=== PATIENT | female | born 1955 | race Caucasian/White ===

== ENCOUNTER 2017-03-21 03:51 | Emergency (ER) | payer MEDICAID, MEDICARE ==
[2017-03-21] MEDS ORDERED: Aspirin Low Dose CHEW TAB* 81 MG PO ONE (04:16)
[2017-03-21 05:34] LABS: ABS Basophils 0 10^3/ul (0-0.2); ABS Eosinophils 0.2 10^3/ul (0-0.6); ABS Lymphocytes 2.8 10^3/ul (1.0-4.8); ABS Monocytes 0.7 10^3/ul (0-0.8); ABS Neutrophils 4.7 10^3/ul (1.5-7.7); ABS Nucleated RBC 0.01 10^3/ul; Eosinophil % 2.3 % (0-6); Hematocrit 41 % (35-47); Hemoglobin 13.9 g/dl (12.0-16.0); Lymphocyte % 32.8 % (25-47); Mean Corpuscular HGB Conc 34 g/dl (31-36); Mean Corpuscular Hemoglobin 30 pg (27-31); Mean Corpuscular Volume 87 fL (80-97); Mean Platelet Volume 8 um3 (7.4-10.4); Nucleated Red Blood Cells % 0.1; Platelet Count 327 10^3/ul (150-450); Red Blood Count 4.72 10^6/ul (4.0-5.4); Red Cell Distribution Width 15 % (10.5-15); White Blood Count 8.4 10^3/ul (3.5-10.8)
[2017-03-21 05:44] LABS: INR 0.91 (0.77-1.02)
--- OUTSIDE RECORDS SUMMARY | 2017-03-21 05:44 | XMS REPORT ---
:1955 External Reference #:[id number] Author Organization [facility] Address [address] [place] [address] Phone [phone] Care Team Providers Name Role Phone HarshilSal BARDALES Primary Care Physician Unavailable Payers Type Date Identification Numbers Payment Provider Subscriber Medicare Primary Effective: Policy Number: Medicare - Bswny Sheri Boothe 2016 [id number] PayID: [id number] [address] [place] [address] Medigap Part B Policy Number: [id number] Medicaid After Private Sheri Boothe Group Name: 1 2 Type ins co. code [address] PayID: [id number] [place] [address] Medigap Part B Effective: Policy Number: Tressa Boothe 2012 [id number] Expires: 2016 Group Name: [place] [address] [address] PayID: [id number] JEREMY Momin [id number] Medigap Part B Effective: Policy Number: Tressa Boothe 2001 [id number] Expires: 2010 Group Number: [id number] [address] Group Name: BC/[place] of [place] Dhillon [address] PayID: [id number] Medigap Part B Effective: Policy Number: Tressa Boothe 2010 [id number] Expires: 2012 Group Name: Enhanced [address] [address] PayID: [id number] JEREMY Momin [id number] Workers Compensation Onset: 2002 Policy Number: [employer] Sheri Pahm [id number] Shyann PayID: [id number] [address] [place] [address] Advance Directives Type Date Description Status Comment Other Directive 12/30/2009 Health Care Proxy Current and Verified Problems Date Description Provider Status Onset: 08/26/2010 Hypothyroidism Natali Melo M.D. Active Family History Date Family Member(s) Problem(s) Comments Father Diabetes : (age 69 Father due to CHF Years) Father Obesity Father CHF Father Hypertension Mother Goiter Mother Diabetes Mother Hypertension Mother SC first early 70's..... age 86 with CAD Mother CHF Mother COPD First Brother Prostate Disease Paternal Grandmother Diabetes Paternal Grandmother CAD Social History Type Date Description Comments Lives With Alone Diet Healthy, Well Balanced tries to get vegetrables, has a smoothie most mornings Pets 2 cats Pets 1 dog Occupation Disabled worked for the [employer] prior to disability due to cardiomyopathy.....she is busy helping her aunts and keeping up the house Cigarette Use Former Cigarette Smoker 1/2 Pack Daily Cigarette Use Quit - Age 48 ETOH Use Denies alcohol use Smoking Patient is a former smoker Recreational Drug Use Denies Drug Use Daily Caffeine Consumes on average 1 cup of DECAFF tea per day Enjoy Exercising Does not enjoy exercising General Hx Text Adopted one child out in teens, has another child named Vickie Del Rio, age 28. Allergies, Adverse Reactions, Alerts Date Description Reaction Status Severity Comments 07/27/2006 Penicillin active 07/27/2006 Penicillin active Medications Medication Date Status Form Strength Qnty SIG Indications Ordering Provider Doxycycline 03/11 Active Tablets 100mg 20tab 1 tab by J01.90 Aidan Hyclate s mouth twice [place] a day. MD Irma not fill until patient calls. 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[employer] Naproxen Sodium 12/23 Active Tablets 550mg 60tab 1 by mouth M54.2 nt s twice a day Sheryl Chua, with food [employer]ICIAN[employer] if needed for pain Magnesium 07/11 Active Tablets 250mg 90tab 1 by mouth 729.82 nt s every night Sheyrl Chua, at bedtime [employer] TECH[employer]ICIAN[employer] for leg cramps Trazodone HCL 07/11 Active Tablets 100mg 30tab take one G47.00 wnt s tablet by Sheryl Chua mouth at [facility] bedtime for insomnia Montelukast 09/25 Active Tablets 10mg 90tab take 1 Aidan Sodium s tablet by Lei santoro once , daily Levothyroxine 01/19 Active Tablets 112mcg 90tab take 1 Shawnti Sodium s tablet once Sheryl Chua, daily [facility] Calcium-Vitamin 04/17 Active Tablets 500-125 1 po bid Estrellita Ryan Chun., often R.D. forgets Lisinopril Active Tablets 2.5mg 30tab 1 po qd Brand, /0000 s MD Naveed Metoprolol Active Tablets ER 25mg 30tab 1 po qd Brand, Succinate ER /0000 24HR s MD Naveed Furosemide Active Tablets 20mg 30tab 1 po daily Brand, /0000 s if needed MD Naveed Clarithromycin 05/16 Hx Tablets 500mg 20tab 1 by mouth J01.90 s twice a day Sheryl Chua, - for [facility] 09/15 sinusitis Bactrim DS 02/12 Hx Tablets 800-160mg 10tab take 1 Aidan s tablet by Lei booth MD 05/16 12 hours /2016 for 5 days Wellbutrin XL 12/23 Hx Tablets ER 150mg 30tab Take One F33.1 24HR s Tablet By Sheryl Chua - Mouth Every [facility] 12/01 Morning Clindamycin HCL 12/06 Hx Capsules 300mg 21cap take 1 Man01.90 Aidan s capsule by Lei - mouth MD leobardo 12/23 8 hours 7 days Sudafed 10/30 Hx Tablets 30mg 30tab 1 tab by Man01Juan Aidan s mouth three [place] - times a day MD 12/23 pressure Azithromycin 10/30 Hx Tablets 250mg 6tabs take 2 J01.90 Aidan tablets by Heettoribioks - mouth one MD 12/23 time take one daily for 4 days. Do not fill until patient calls. Zantac 150 05 Hx Tablets 150mg 30tab 1 po QHS R07.9 [facility] s Sheryl Chua, - [facility]- 05/16 Alprazolam 06/25 Hx Tablets 0.25mg 30tab 1 by mouth R07.9 s before bed Sheryl Chua, - [facility]- 05/16 Nasonex 06/03 Hx Suspension 50mcg/Act 17uni 2 sprays ts each Sheryl Chua, - nostril [facility]- 05/15 daily rhinitis Tizanidine HCL 07/15 Hx Tablets 2mg 30tab take 1 s tablet by Sheryl Chua, - mouth [facility]- 12/28 Before If Needed For Muscle Cramps Ceftin 03/21 Hx Tablets 500mg 20tab 1 by mouth s twice a day Sheryl Chua, - for 10 days [facility] 03/21 Cefuroxime 03/21 Hx Tablets 500mg 20tab 1 by mouth Axetil s twice a day Sheryl Chua, - for [facility] 03/31 infection Pool Membership 01/03 Hx swimming for Sheryl Chua, - exercise at [facility] 12/23 least twice weekly for cardiomyopa thy, cuboid syndrome and chronic neck and back pain Trazodone HCL 06/20 Hx Tablets 50mg 30tab 1 po QHS 780.52 s Sheryl Chua, - [facility] 07/11 Lidoderm 01/06 Hx Patches 5% 30uni apply one 726.19 ts patch to Sheryl Chua, - daily daily [facility]- 12/28 if needed for pain, remove after 12 hours Mirtazapine 08/30 Hx Tablets 15mg 30tab take 1 780.52 s tablet by Sheryl Chua, - mouth at [facility] 06/20 bedtime Needed For Sleep Cephalexin 03/17 Hx Tablets 500mg 20tab take 1 599.0 s tablet po Therese, - bid x 10 [employer] TECHNICIAN[employer] SMZ-TMP DS 03/12 Hx Tablets 800-160mg 6tabs one po bid 599.0 for 3 days K.W. - for UTI Kameron, 03/17 M.D. Azithromycin 01/25 Hx Tablets 250mg 6tabs take 2 461.8 tablets Therese, - today then [employer] TECH[employer]ICIAN[employer] 02/11 1 tablet daily for the next 4 days Trazodone HCL 11/10 Hx Tablets 50mg 60tab take one to 780.52 s two tablets K.W. - by mouth at [place], 08/30 bedtime as .D. needed for insomnia Fluticasone 01/12 Hx Suspension 50mcg/Act 16uni Use as Shawnti Propionate ts Directed Sheryl Chua, - [employer] TECH[employer]IAN[employer] 06/03 Pulmicort 09/24 Hx Aerosol 180mcg/Ac 1mont 1 inhlation 518.89 Shawnti Flexhaler t h bid for Sheryl Chua, - breathing [employer]CH[employer]ICIAN[employer] 11/10 No Work 12/13 Hx excuse due 465.9 to illness, Sheryl Chua, - may return [employer] TECHNICIAN[employer] 08/26 when fever /2010 free and feeling better Betamethasone 12/03 Hx Cream 0.1% 15g apply to 782.9 Natali Valerate efrain K.W. - areas of [place], 01/25 skin bid- M.D. avoid eyes Naprosyn Ec 05/01 Hx Tablets 500mg 60tab 1 po bid 719.44 s with food Sheryl Chua, - for pain, [employer]IAN[employer] 07/02 stop taking if stomach pain develops Metrogel-Vaginal 10/11 Hx Gel 0.75% 70g one applicator Lay, - full bid M.D., 07/02 for 5 days R.D. Robitussin ac 04/21 Hx 150ml 1-2 tsp po 486 nt q4-6hr prn Sheryl Chua, - cough/pain [employer] TE[employer]ICIAN[employer] 12/03 Zithromax Z-Nadir 04/18 Hx Tablets 250mg 6tabs two by Estrellita /2008 mouth every Lay, - day today M.DNissa, 03/21 and then R.D. /2013 one by mouth every day for 4 days Multi-Vitamin/Mi 04/17 Hx Tablets 1 po qd Estrellita ner Lay - Vero.Kierra, 12/28 R.D. /2014 Zithromax Z-Nadir 03/31 Hx Tablets 250mg 6tabs 2 po on day 465.9 wnt 1, 1 po on R. Storm, - days 2-5 [employer] TECHNICIAN[employer] 04/17 Flonase 01/24 Hx Suspension 50mcg/Act 16G Ud For Allergic K.W. - Rhinitis Kameron, 01/12 M.D. Synthroid 01/24 Hx Tablets 112mcg 90tab Take 1 s Tablet Once K.W. - Daily Kameron, 01/19 (Recheck M.D. Thyroid Levels Once A Year) Levothyroxine 11/30 Hx Tabs 112mcg 30tab take 1 s tablet once K.W. - daily Kameron, 01/24 (Recheck .D. Thyroid Levels In 1 To 2 Months) Synthroid 03/08 Hx Tablets 100mcg 30tab one po qd s and recheck K.W. - TSH in 6 Kameron, 01/23 months. .D. Synthroid 08/05 Hx Tablets 112mcg 30tab one po qd, s recheck K.W. - thyroid Kameron, 03/08 levels in .D. 1-2 months Synthroid 07/27 Hx Tablets 125mcg 0tabs 1 po qd Harrison.WNissa - Kameron, 08/05.D. Flector Hx Patches 1.3% [place], /0000 Lee Gauthier MD 11/10 Chlorhexidine Hx Solution 0.12% Unknown Gluconate / - 11/10 Etodolac Hx Tablets 400mg Unknown / - 11/10 Singulair 00/00 Hx Tablets 10mg 90tab one po qd Shawnti /0000 dileep Chua - CONTRACT TECHNICIAN-Rajesh 09/25 Chlorhexidine Hx Solution 0.12% Unknown Gluconate /0000 - 11/10 Eszopiclone Hx Tablets 1mg take 1 Unknown /0000 tablet - every 06/25 Immunizations CPT Code Status Date Vaccine Lot # [id number] Given 12/01/2016 Influenza Virus Vaccine, Quadrivalent, 3 Yr > [id number] Quad, Preserv Free 04090 Given 12/24/2015 Pneumovax 23 (PPSV23) 65+ years or high risk 2 to [id number] 64 year old 46252 Given 12/07/2015 Influenza Virus Vaccine, Quadrivalent, 3 Yr > [id number] Quad, Preserv Free 65161 Given 03/20/2015 Influenza Virus Vaccine, Quadrivalent, 3 Yr > [id number] Quad, Preserv Free 35846 Given 01/03/2014 Influenza Virus Vaccine, Quadrivalent, 3 Yr > [id number] Quad, Preserv Free 54982 Given 02/16/2013 Influenza Vaccine-Preservative Free 3 Yrs And [id number] Above 48281 Given 12/03/2009 Tdap (Adacel) [id number] 11985 Given 12/03/2009 Influenza Vaccine-Preservative Free 3 Yrs And [id number] Vital Signs Date Vital Result Comment 03/11/2017 Weight 218.00 lb Weight in kg's 98.885 BP Systolic 105 mmHg BP Diastolic 80 mmHg Heart Rate 76 /min Body Temperature 99.1 F O2 % BldC Oximetry 95 % 12/01/2016 Weight 220.00 lb Weight in kg's 99.792 BP Systolic 110 mmHg BP Diastolic 80 mmHg Heart Rate 68 /min Body Temperature 97.8 F 09/15/2016 Weight 217.00 lb Weight in kg's 98.431 BP Systolic 104 mmHg BP Diastolic 68 mmHg Heart Rate 75 /min Respiratory Rate 16 /min Height 64 inches 5'4" BMI (Body Mass Index) 37.2 kg/m2 O2 % BldC Oximetry 98 % 05/16/2016 Weight 214.00 lb Weight in kg's 97.070 BP Systolic 100 mmHg BP Diastolic 66 mmHg Heart Rate 70 /min Body Temperature 97.1 F Respiratory Rate 16 /min O2 % BldC Oximetry 97 % 01/28/2016 Weight 214.00 lb Weight in kg's 97.070 BP Systolic 100 mmHg BP Diastolic 60 mmHg Heart Rate 68 /min Body Temperature 97.6 F Respiratory Rate 12 /min Height 63 inches 5'3" BMI (Body Mass Index) 37.9 kg/m2 12/24/2015 Weight 206.00 lb Weight in kg's 93.442 BP Systolic 110 mmHg BP Diastolic 80 mmHg Heart Rate 80 /min O2 % BldC Oximetry 96 % 12/07/2015 Weight 211.00 lb Weight in kg's 95.710 BP Systolic 100 mmHg BP Diastolic 60 mmHg Heart Rate 60 /min Body Temperature 99.3 F O2 % BldC Oximetry 98 % 10/31/2015 Weight 214.00 lb Weight in kg's 97.070 BP Systolic 90 mmHg BP Diastolic 62 mmHg Heart Rate 73 /min Body Temperature 96.7 F Respiratory Rate 20 /min O2 % BldC Oximetry 98 % 06/26/2015 Weight 223.00 lb Weight in kg's 101.153 BP Systolic 110 mmHg BP Diastolic 68 mmHg Heart Rate 76 /min O2 % BldC Oximetry 98 % 06/04/2015 Weight 222.00 lb Weight in kg's 100.699 BP Systolic 108 mmHg BP Diastolic 70 mmHg Heart Rate 76 /min Height 64 inches 5'4" BMI (Body Mass Index) 38.1 kg/m2 05/14/2015 Weight 221.00 lb Weight in kg's 100.246 BP Systolic 115 mmHg BP Diastolic 86 mmHg Heart Rate 76 /min 03/20/2015 Weight 222.00 lb Weight in kg's 100.699 BP Systolic 100 mmHg BP Diastolic 70 mmHg Heart Rate 81 /min Body Temperature 97.8 F O2 % BldC Oximetry 98 % 12/28/2014 Weight 218.00 lb Weight in kg's 98.885 BP Systolic 110 mmHg BP Diastolic 70 mmHg Heart Rate 68 /min Body Temperature 97.6 F 10/30/2014 Weight 215.00 lb Weight in kg's 97.524 BP Systolic 100 mmHg BP Diastolic 70 mmHg Heart Rate 76 /min 07/11/2014 Weight 216.00 lb Weight in kg's 97.978 BP Systolic 90 mmHg BP Diastolic 70 mmHg Heart Rate 80 /min 04/18/2014 Weight 217.00 lb Weight in kg's 98.431 BP Systolic 98 mmHg BP Diastolic 68 mmHg Heart Rate 78 /min Body Temperature 99.0 F O2 % BldC Oximetry 98 % 03/20/2014 Weight 218.00 lb Weight in kg's 98.885 BP Systolic 98 mmHg BP Diastolic 62 mmHg Heart Rate 74 /min Body Temperature 98.7 F O2 % BldC Oximetry 96 % 01/03/2014 Weight 208.00 lb Weight in kg's 94.349 BP Systolic 102 mmHg BP Diastolic 64 mmHg Heart Rate 72 /min Body Temperature 98.6 F Height 64 inches 5'4" BMI (Body Mass Index) 35.7 kg/m2 08/05/2013 Weight 207.00 lb Weight in kg's 93.895 BP Systolic 102 mmHg BP Diastolic 68 mmHg Heart Rate 68 /min 07/22/2013 Weight 208.00 lb Weight in kg's 94.349 BP Systolic 108 mmHg BP Diastolic 78 mmHg Heart Rate 80 /min 05/30/2013 Weight 210.00 lb Weight in kg's 95.256 BP Systolic 102 mmHg BP Diastolic 60 mmHg Heart Rate 72 /min Apical 84 04/04/2013 Weight 205.00 lb Weight in kg's 92.988 BP Systolic 110 mmHg BP Diastolic 70 mmHg Heart Rate 72 /min Body Temperature 98.1 F 01/06/2013 Weight 191.00 lb Weight in kg's 86.638 BP Systolic 84 mmHg BP Diastolic 60 mmHg Heart Rate 84 /min Body Temperature 98.1 F 11/02/2012 Weight 187.00 lb Weight in kg's 84.823 BP Systolic 86 mmHg BP Diastolic 66 mmHg Heart Rate 81 /min Body Temperature 97.7 F O2 % BldC Oximetry 98 % 08/30/2012 Weight 189.00 lb Weight in kg's 85.730 BP Systolic 110 mmHg BP Diastolic 80 mmHg Heart Rate 92 /min Height 64 inches 5'4" BMI (Body Mass Index) 32.4 kg/m2 03/17/2012 Weight 190.00 lb Weight in kg's 86.184 BP Systolic 108 mmHg BP Diastolic 76 mmHg Heart Rate 107 /min Body Temperature 100.7 F O2 % BldC Oximetry 98 % 03/12/2012 Weight 190.00 lb Weight in kg's 86.184 BP Systolic 98 mmHg BP Diastolic 74 mmHg Heart Rate 84 /min Body Temperature 97.6 F O2 % BldC Oximetry 97 % 01/31/2012 Weight 184.00 lb Weight in kg's 83.462 BP Systolic 102 mmHg BP Diastolic 80 mmHg Heart Rate 76 /min Body Temperature 97.7 F Last Menstrual Period 0 O2 % BldC Oximetry 98 % At Room Air 01/26/2012 BP Systolic 114 mmHg BP Diastolic 70 mmHg Heart Rate 77 /min Body Temperature 97.7 F O2 % BldC Oximetry 99 % 11/11/2011 Weight 184.00 lb Weight in kg's 83.462 BP Systolic 118 mmHg BP Diastolic 78 mmHg Heart Rate 70 /min 10/29/2011 Weight 187.00 lb Weight in kg's 84.823 05/20/2011 Weight 200.00 lb Weight in kg's 90.720 BP Systolic 120 mmHg BP Diastolic 80 mmHg Heart Rate 92 /min Body Temperature 98.0 F 09/24/2010 Weight 188.00 lb Weight in kg's 85.277 BP Systolic 124 mmHg BP Diastolic 80 mmHg Heart Rate 80 /min Body Temperature 98.5 F O2 % BldC Oximetry 97 % At Room Air 08/26/2010 Weight 194.00 lb Weight in kg's 87.998 BP Systolic 100 mmHg BP Diastolic 60 mmHg Heart Rate 80 /min Height 64.25 inches 5'4.25" BMI (Body Mass Index) 33.0 kg/m2 12/13/2009 Weight 183.00 lb Weight in kg's 83.009 BP Systolic 106 mmHg BP Diastolic 80 mmHg Heart Rate 84 /min Body Temperature 99.1 F 12/03/2009 Weight 189.00 lb Weight in kg's 85.730 BP Systolic 118 mmHg BP Diastolic 78 mmHg Heart Rate 96 /min 07/02/2009 Weight 190.00 lb Weight in kg's 86.184 BP Systolic 90 mmHg BP Diastolic 70 mmHg Heart Rate 88 /min Height 63.50 inches 5'3.50" BMI (Body Mass Index) 33.1 kg/m2 O2 % BldC Oximetry 98 % At Room Air 05/01/2009 Weight 195.00 lb Weight in kg's 88.452 BP Systolic 130 mmHg BP Diastolic 80 mmHg Heart Rate 80 /min Body Temperature 97.6 F 01/22/2009 Weight 190.00 lb Weight in kg's 86.184 BP Systolic 128 mmHg BP Diastolic 90 mmHg Heart Rate 84 /min Body Temperature 98.4 F 12/18/2008 Weight 190.00 lb Weight in kg's 86.184 BP Systolic 120 mmHg BP Diastolic 80 mmHg Heart Rate 72 /min 10/02/2008 Weight 188.00 lb Weight in kg's 85.277 BP Systolic 140 mmHg BP Diastolic 100 mmHg Heart Rate 76 /min 07/24/2008 Weight 188.00 lb Weight in kg's 85.277 BP Systolic 112 mmHg BP Diastolic 80 mmHg Heart Rate 84 /min 04/21/2008 Weight 187.00 lb Weight in kg's 84.823 BP Systolic 110 mmHg BP Diastolic 80 mmHg Heart Rate 76 /min Body Temperature 98.7 F Oral O2 % BldC Oximetry 97 % Room Air 04/17/2008 Weight 184.00 lb Weight in kg's 83.462 BP Systolic 122 mmHg BP Diastolic 80 mmHg Heart Rate 84 /min Height 63.5 inches 5'3.50" BMI (Body Mass Index) 32.1 kg/m2 03/31/2008 Weight 187.00 lb Weight in kg's 84.823 BP Systolic 110 mmHg BP Diastolic 60 mmHg Body Temperature 102.6 F 01/24/2008 Weight 187.00 lb Weight in kg's 84.823 BP Systolic 116 mmHg BP Diastolic 76 mmHg Heart Rate 84 /min Height 64 inches 5'4" BMI (Body Mass Index) 32.1 kg/m2 05/24/2007 Weight 192.00 lb Weight in kg's 87.091 BP Systolic 108 mmHg BP Diastolic 70 mmHg Heart Rate 92 /min Body Temperature 99.0 F Height 64 inches 5'4" BMI (Body Mass Index) 33.0 kg/m2 08/03/2006 Weight 184.00 lb Weight in kg's 83.462 BP Systolic 120 mmHg BP Diastolic 68 mmHg Heart Rate 68 /min Height 64 inches 5'4" BMI (Body Mass Index) 31.6 kg/m2 Results Test Date Test Result H/L Range Note Lipid Profile (Trig/Chol/HDL) 12/01/2016 Triglycerides 95 mg/dL 1 Cholesterol 177 mg/dL 2 HDL Cholesterol 81.4 mg/dL 3 LDL Cholesterol 77 mg/dL 4 Comp Metabolic Panel 12/01/2016 Sodium 138 mmol/L 133-145 Potassium 4.2 mmol/L 3.5-5.0 Chloride 104 mmol/L 101-111 Co2 Carbon Dioxide 29 mmol/L 22-32 Anion Gap 5 mmol/L 2-11 Glucose 98 mg/dL 70-100 Blood Urea Nitrogen 18 mg/dL 6-24 Creatinine 0.82 mg/dL 0.51-0.95 BUN/Creatinine Ratio 22.0 High 8-20 Calcium 9.7 mg/dL 8.6-10.3 Total Protein 6.7 g/dL 6.4-8.9 Albumin 4.4 g/dL 3.2-5.2 Globulin 2.3 g/dL 2-4 Albumin/Globulin Ratio 1.9 1-3 Total Bilirubin 0.50 mg/dL 0.2-1.0 Alkaline Phosphatase 78 U/L 34-104 Alt 15 U/L 7-52 Ast 18 U/L 13-39 Egfr Non- 70.9 >60 Egfr 91.1 >60 5 CBC Auto Diff 12/01/2016 White Blood Count 7.5 10^3/uL 3.5-10.8 Red Blood Count 4.58 10^6/uL 4.0-5.4 Hemoglobin 13.5 g/dL 12.0-16.0 Hematocrit 40 % 35-47 Mean Corpuscular Volume 88 fL 80-97 Mean Corpuscular Hemoglobin 30 pg 27-31 Mean Corpuscular HGB Conc 34 g/dL 31-36 Red Cell Distribution Width 14 % 10.5-15 Platelet Count 274 10^3/uL 150-450 Mean Platelet Volume 9 um3 7.4-10.4 Abs Neutrophils 4.1 10^3/uL 1.5-7.7 Abs Lymphocytes 2.6 10^3/uL 1.0-4.8 Abs Monocytes 0.6 10^3/uL 0-0.8 Abs Eosinophils 0.2 10^3/uL 0-0.6 Abs Basophils 0 10^3/uL 0-0.2 Abs Nucleated RBC 0.01 10^3/uL Granulocyte % 54.0 % 38-83 Lymphocyte % 35.0 % 25-47 Monocyte % 7.7 % 1-9 Eosinophil % 2.8 % 0-6 Basophil % 0.5 % 0-2 Nucleated Red Blood Cells % 0.1 Laboratory test finding 12/01/2016 Vitamin B12 817 pg/mL 180-914 6 TSH (Thyroid Stim Horm) 1.08 mcIU/mL 0.34-5.60 7 CBC Auto Diff 09/15/2016 White Blood Count 8.4 10^3/uL 3.5-10.8 Red Blood Count 4.62 10^6/uL 4.0-5.4 Hemoglobin 13.6 g/dL 12.0-16.0 Hematocrit 41 % 35-47 Mean Corpuscular Volume 89 fL 80-97 Mean Corpuscular Hemoglobin 30 pg 27-31 Mean Corpuscular HGB Conc 33 g/dL 31-36 Red Cell Distribution Width 15 % 10.5-15 Platelet Count 261 10^3/uL 150-450 Mean Platelet Volume 9 um3 7.4-10.4 Abs Neutrophils 5.2 10^3/uL 1.5-7.7 Abs Lymphocytes 2.4 10^3/uL 1.0-4.8 Abs Monocytes 0.6 10^3/uL 0-0.8 Abs Eosinophils 0.2 10^3/uL 0-0.6 Abs Basophils 0 10^3/uL 0-0.2 Abs Nucleated RBC 0 10^3/uL Granulocyte % 61.9 % 38-83 Lymphocyte % 29.1 % 25-47 Monocyte % 6.6 % 1-9 Eosinophil % 1.9 % 0-6 Basophil % 0.5 % 0-2 Nucleated Red Blood Cells % 0 Comp Metabolic Panel 09/15/2016 Sodium 141 mmol/L 133-145 Potassium 4.1 mmol/L 3.5-5.0 Chloride 106 mmol/L 101-111 Co2 Carbon Dioxide 29 mmol/L 22-32 Anion Gap 6 mmol/L 2-11 Glucose 88 mg/dL 70-100 Blood Urea Nitrogen 19 mg/dL 6-24 Creatinine 0.72 mg/dL 0.51-0.95 BUN/Creatinine Ratio 26.4 High 8-20 Calcium 9.3 mg/dL 8.6-10.3 Total Protein 6.4 g/dL 6.4-8.9 Albumin 4.0 g/dL 3.2-5.2 Globulin 2.4 g/dL 2-4 Albumin/Globulin Ratio 1.7 1-3 Total Bilirubin 0.50 mg/dL 0.2-1.0 Alkaline Phosphatase 76 U/L 34-104 Alt 13 U/L 7-52 Ast 18 U/L 13-39 Egfr Non- 82.3 >60 Egfr 105.9 >60 8 Laboratory test 09/15/2016 TSH (Thyroid Stim Horm) 1.14 mcIU/mL 0.34- 5.60 9 finding Lipid Profile 09/15/2016 Triglycerides 114 mg/dL 10 (Trig/Chol/HDL) Cholesterol 168 mg/dL 11 HDL Cholesterol 64.4 mg/dL 12 LDL Cholesterol 81 mg/dL 13 Laboratory test 09/15/2016 Hemoglobin A1c 5.8 % Less than 6.0 14 finding (Glyco HGB) Laboratory test 05/16/2016 Urine Culture And SEE RESULT BELOW 15 finding Sensitivities Laboratory test 05/16/2016 Hepatitis C Antibody Nonreactive Nonreactive 16 finding Laboratory test 02/13/2016 Urine Culture And SEE RESULT BELOW 17 finding Sensitivities Urine DIP 02/13/2016 Leukocytes ++ Neg Urine Nitrites POS Neg Urobilinogen NORM Norm Total Protein, Urine 30 High Neg Urine pH 5 5-6 Urine Blood 50 High Neg Specific [place] 1.02 1.01-1.02 Urine Ketones NEG Neg Urine Bilirubin NEG Neg Urine Glucose NORM Norm Urine DIP 01/28/2016 Leukocytes neg Neg Urine Nitrites neg Neg Urobilinogen norm Norm Total Protein, Urine neg Neg Urine pH 5 5-6 Urine Blood neg Neg Specific [place] 1.020 1.01-1.02 Urine Ketones neg Neg Urine Bilirubin neg Neg Urine Glucose norm Norm Laboratory test finding 06/04/2015 Cytology SEE RESULT BELOW 18 HPV Rna Ww/Reflex Genotype Negative Negative 19 Varicella Zoster Igg AB 06/04/2015 Varicella-Zoster IgG Antibody Positive 20 Varicella IgG Antibody Index 1.9 21 CBC Auto Diff 06/04/2015 White Blood Count 7.0 10^3/uL 3.5-10.8 Red Blood Count 4.73 10^6/uL 4.0-5.4 Hemoglobin 13.7 g/dL 12.0-16.0 Hematocrit 43 % 35-47 Mean Corpuscular Volume 90 fL 80-97 Mean Corpuscular Hemoglobin 29 pg 27-31 Mean Corpuscular HGB Conc 32 g/dL 31-36 Red Cell Distribution Width 14 % 10.5-15 Platelet Count 292 10^3/uL 150-450 Mean Platelet Volume 9 um3 7.4-10.4 Abs Neutrophils 3.8 10^3/uL 1.5-7.7 Abs Lymphocytes 2.5 10^3/uL 1.0-4.8 Abs Monocytes 0.4 10^3/uL 0-0.8 Abs Eosinophils 0.2 10^3/uL 0-0.6 Abs Basophils 0.1 10^3/uL 0-0.2 Abs Nucleated RBC 0 10^3/uL Granulocyte % 54.4 % 38-83 Lymphocyte % 35.3 % 25-47 Monocyte % 6.2 % 1-9 Eosinophil % 3.1 % 0-6 Basophil % 1.0 % 0-2 Nucleated Red Blood Cells % 0 Comp Metabolic Panel 06/04/2015 Sodium 140 mmol/L 133-145 Potassium 4.0 mmol/L 3.5-5.0 Chloride 104 mmol/L 101-111 Co2 Carbon Dioxide 30 mmol/L 22-32 Anion Gap 6 mmol/L 2-11 Glucose 86 mg/dL 70-100 Blood Urea Nitrogen 19 mg/dL 6-24 Creatinine 0.82 mg/dL 0.51-0.95 BUN/Creatinine Ratio 23.2 High 8-20 Calcium 9.4 mg/dL 8.6-10.3 Total Protein 6.6 g/dL 6.4-8.9 Albumin 4.4 g/dL 3.2-5.2 Globulin 2.2 g/dL 2-4 Albumin/Globulin Ratio 2.0 1-3 Total Bilirubin 0.50 mg/dL 0.2-1.0 Alkaline Phosphatase 70 U/L 34-104 Alt 20 U/L 7-52 Ast 22 U/L 13-39 Egfr Non- 71.1 >60 Egfr 91.5 >60 22 Lipid Profile (Trig/Chol/HDL) 06/04/2015 Triglycerides 73 mg/dL 23 Cholesterol 167 mg/dL 24 HDL Cholesterol 68.3 mg/dL 25 LDL Cholesterol 84 mg/dL 26 Laboratory test finding 06/04/2015 TSH (Thyroid Stim Horm) 1.71 ?IU/mL 0.34-5.60 Hemoglobin A1c (Glyco HGB) 5.8 % Less than 6.0 27 Laboratory test finding 03/20/2015 TSH (Thyroid Stim Horm) 2.27 ?IU/mL 0.34-5.60 Urine DIP 12/28/2014 Specific [place] 1.010 1.01-1.02 Urine pH 6 5-6 Leukocytes + Neg Urine Nitrites NEG Neg Total Protein, Urine NEG Neg Urine Glucose NORM Norm Urine Ketones NEG Neg Urobilinogen NORM Norm Urine Bilirubin NEG Neg Urine Blood NEG Neg Comp Metabolic Panel 07/11/2014 Sodium 138 mmol/L 133-145 Potassium 4.1 mmol/L 3.5-5.0 Chloride 101 mmol/L 101-111 Co2 Carbon Dioxide 31 mmol/L 22-32 Anion Gap 6 mmol/L 2-11 Glucose 89 mg/dL 70-100 Blood Urea Nitrogen 16 mg/dL 6-24 Creatinine 0.76 mg/dL 0.51-0.95 BUN/Creatinine Ratio 21.1 High 8-20 Calcium 9.7 mg/dL 8.6-10.3 Total Protein 6.7 g/dL 6.4-8.9 Albumin 4.6 g/dL 3.2-5.2 Globulin 2.1 g/dL 2-4 Albumin/Globulin Ratio 2.2 1-3 Total Bilirubin 0.60 mg/dL 0.2-1.0 Alkaline Phosphatase 71 U/L 34-104 Alt 24 U/L 7-52 Ast 27 U/L 13-39 Egfr Non- 77.9 >60 Egfr 100.2 >60 28 Laboratory test finding 07/11/2014 Magnesium 2.1 mg/dL 1.9-2.7 Flu Test A, B, Or A & 03/20/2014 Influenza A Antigen neg B,Binaxn Influenza B Antigen neg CBC No Diff 01/03/2014 White Blood Count 5.8 10^3/uL 4.8-10.8 Red Blood Count 4.89 10^6/uL 4.0-5.4 Hemoglobin 14.3 g/dL 12.0-16.0 Hematocrit 43 % 35-47 Mean Corpuscular Volume 89 fL 80-97 Mean Corpuscular Hemoglobin 29 pg 27-31 Mean Corpuscular HGB Conc 33 g/dL 31-36 Red Cell Distribution Width 14 % 10.5-15 Platelet Count 266 10^3/uL 150-450 Mean Platelet Volume 9 um3 7.4-10.4 Comp Metabolic Panel 01/03/2014 Sodium 140 mmol/L 133-145 Potassium 4.4 mmol/L 3.7-5.6 Chloride 104 mmol/L 101-111 Co2 Carbon Dioxide 32 mmol/L 22-32 Anion Gap 4 mmol/L 2-11 Glucose 83 mg/dL 70-100 Blood Urea Nitrogen 19 mg/dL 6-24 Creatinine 0.85 mg/dL 0.51-0.95 BUN/Creatinine Ratio 22.4 High 8-20 Calcium 9.7 mg/dL 8.6-10.3 Total Protein 6.7 g/dL 6.4-8.9 Albumin 4.5 g/dL 3.2-5.2 Globulin 2.2 g/dL 2-4 Albumin/Globulin Ratio 2.0 1-3 Total Bilirubin 0.40 mg/dL 0.2-1.0 Alkaline Phosphatase 82 U/L 34-104 Alt 15 U/L 7-52 Ast 17 U/L 13-39 Egfr Non- 68.7 >60 Egfr 88.3 >60 29 Laboratory test finding 01/03/2014 Vitamin B12 288 pg/mL 180-914 30 TSH (Thyroid Stimulating Horm) 1.63 IU/mL 0.34-5.60 Arthritis Panel 05/31/2013 Erythrocyte Sed Rate 10 mm/Hr 0-30 Uric Acid 6.4 mg/dL 2.3-6.6 Yolande (Anti-Nuclear AB) Screen Reflexed to FA Negative Rheumatoid Factor <15 IU/mL <15 31 CBC No Diff 05/31/2013 White Blood Count 6.2 10^3/uL 4.8-10.8 Red Blood Count 4.86 10^6/uL 4.0-5.4 Hemoglobin 14.4 g/dL 12.0-16.0 Hematocrit 42 % 35-47 Mean Corpuscular Volume 86 fL 80-97 Mean Corpuscular Hemoglobin 30 pg 27-31 Mean Corpuscular HGB Conc 34 g/dL 31-36 Red Cell Distribution Width 14 % 10.5-15 Platelet Count 246 10^3/uL 150-450 Mean Platelet Volume 9 um3 7.4-10.4 Laboratory test finding 05/31/2013 Cyclic Citrullinated Pept IgG <15.6 U 32 TSH (Thyroid Stimulating Horm) 0.83 IU/mL 0.34-5.60 Lyme Western Blot 05/31/2013 Lyme Disease IgG Ab WB Negative Negative Lyme Disease IgG Bands Present No bands detecte <SEE NOTE> kDa 33 Lyme Disease IgM Ab WB Negative Negative Lyme Disease IgM Bands Present No bands detecte <SEE NOTE> kDa 34 Lyme Disease Interpretation See Comment 35 Vitamin D, 25 Hydroxy 05/31/2013 25-Hydroxy Vitamin D2 <4.0 ng/mL 25-Hydroxy Vitamin D3 30 ng/mL 25-Hydroxy Vitamin D Total 30 ng/mL 36 Yolande Hep-2 05/31/2013 Yolande Pattern Homogeneous Negative Yolande Titer 1:320 <1:80 Yolande Reviewed By MD Jeet Root <SEE NOTE> 37 Basic Metabolic Panel 05/31/2013 Sodium 140 mmol/L 133-145 Potassium 4.1 mmol/L 3.7-5.6 Chloride 106 mmol/L 101-111 Co2 Carbon Dioxide 29 mmol/L 22-32 Anion Gap 5 mmol/L 2-11 Glucose 77 mg/dL 70-100 Blood Urea Nitrogen 19 mg/dL 6-24 Creatinine 0.72 mg/dL 0.51-0.95 BUN/Creatinine Ratio 26.4 High 8-20 Calcium 9.8 mg/dL 8.6-10.3 Egfr Non- 83.2 >60 Egfr 107.0 >60 38 Laboratory test finding 05/31/2013 B Type Natriuretic 175 pg/mL 39 Peptide Laboratory test finding 05/30/2013 Genital Culture (SEE NOTE) 40 CBC No Diff 02/16/2013 White Blood Count 4.8 10^3/uL 4.8-10.8 Red Blood Count 4.45 10^6/uL 4.0-5.4 Hemoglobin 13.2 g/dL 12.0-16.0 Hematocrit 40 % 35-47 Mean Corpuscular Volume 89 fL 80-97 Mean Corpuscular Hemoglobin 30 pg 27-31 Mean Corpuscular HGB Conc 33 g/dL 31-36 Red Cell Distribution Width 14 % 10.5-15 Platelet Count 237 10^3/uL 150-450 Mean Platelet Volume 9 um3 7.4-10.4 Basic Metabolic Panel 02/16/2013 Sodium 140 mmol/L 133-145 Potassium 4.0 mmol/L 3.5-5.0 Chloride 105 mmol/L 101-111 Co2 Carbon Dioxide 28.0 mmol/L 22-32 Anion Gap 7.0 mmol/L 2-11 Glucose 119 mg/dL High 70-100 Blood Urea Nitrogen 21 mg/dL 6-24 Creatinine 0.90 mg/dL 0.50-1.40 BUN/Creatinine Ratio 23.3 High 8-20 Calcium 9.3 mg/dL 8.1-9.9 Egfr Non- 64.3 >60 Egfr 82.7 >60 41 Laboratory test 10/12/2012 B Type Natriuretic 631.0 pg/mL High 0-100 finding Peptide Laboratory test 10/12/2012 Inr 0.91 0.87-0.97 finding CBC Auto Diff 10/12/2012 White Blood Count 6.1 10^3/uL 4.8-10.8 Red Blood Count 4.18 10^6/uL 4.0-5.4 Hemoglobin 12.7 g/dL 12.0-16.0 Hematocrit 38 % 35-47 Mean Corpuscular Volume 92 fL 80-97 Mean Corpuscular Hemoglobin 30 pg 27-31 Mean Corpuscular HGB Conc 33 g/dL 31-36 Red Cell Distribution Width 14 % 10.5-15 Platelet Count 247 10^3/uL 150-450 Mean Platelet Volume 9 um3 7.4-10.4 Abs Neutrophils 4.0 10^3/uL 1.5-7.7 Abs Lymphocytes 1.6 10^3/uL 1.0-4.8 Abs Monocytes 0.3 10^3/uL 0-0.8 Abs Eosinophils 0.1 10^3/uL 0-0.6 Abs Basophils 0 10^3/uL 0-0.2 Abs Nucleated RBC 0 10^3/uL Granulocyte % 66.0 % 38-83 Lymphocyte % 26.6 % 25-47 Monocyte % 5.5 % 1-9 Eosinophil % 1.6 % 0-6 Basophil % 0.3 % 0-2 Nucleated Red Blood Cells % 0 Comp Metabolic Panel 10/12/2012 Sodium 140 mmol/L 133-145 Potassium 4.0 mmol/L 3.5-5.0 Chloride 107 mmol/L 101-111 Co2 Carbon Dioxide 26.0 mmol/L 22-32 Anion Gap 7.0 mmol/L 2-11 Glucose 110 mg/dL High 70-100 Blood Urea Nitrogen 20 mg/dL 6-24 Creatinine 0.90 mg/dL 0.50-1.40 BUN/Creatinine Ratio 22.2 High 8-20 Calcium 9.3 mg/dL 8.1-9.9 Total Protein 6.5 g/dL 6.2-8.1 Albumin 4.0 g/dL 3.6-5.4 Globulin 2.5 g/dL 2-4 Albumin/Globulin Ratio 1.6 1-3 Total Bilirubin 1.0 mg/dL 0.4-1.5 Alkaline Phosphatase 71 U/L 30-110 Alt 87 U/L High 14-54 Ast 91 U/L High 12-42 Egfr Non- 64.5 >60 Egfr 83.0 >60 42 Laboratory test finding 10/12/2012 Creatine Kinase 96 U/L 0-200 CKMB 10/12/2012 CKMB ng/mL 2.5 ng/mL 0.3-4.0 43 Laboratory test finding 10/12/2012 Troponin I 0.02 ng/mL 0-0.06 44 Myoglobin 25.80 ng/mL 14.3-65.8 TSH (Thyroid Stimulating Horm) 1.96 miu/mL 0.34-5.60 Human Papilloma Virus 08/31/2012 Human Papillomavirus Source See Comment 45 Human Papillomavirus High Risk Negative Negative 46 Urine DIP 08/30/2012 Leukocytes + Neg Urine Nitrites neg Neg Urine pH 5 5-6 Total Protein, Urine trace Neg Urine Glucose norm Norm Urine Ketones neg Neg Urobilinogen norm Norm Urine Bilirubin neg Neg Urine Blood neg Neg Specific [place] 1.025 High 1.01-1.02 Laboratory test finding 08/30/2012 TSH (Thyroid Stimulating 2.56 miu/mL 0.34-5.60 Horm) Lipid Profile 08/30/2012 Triglycerides 45 mg/dL 40-200 (Trig/Chol/HDL) Cholesterol 188 mg/dL Less than 200 HDL Cholesterol 92 mg/dL High 40-60 47 Cholesterol/HDL Ratio 2.0 Average 1-4.44 LDL Cholesterol 87.0 Less Than 100 48 Comp Metabolic Panel 08/30/2012 Sodium 137 mmol/L 133-145 Potassium 4.0 mmol/L 3.5-5.0 Chloride 102 mmol/L 101-111 Co2 Carbon Dioxide 28.0 mmol/L 22-32 Anion Gap 7.0 mmol/L 2-11 Glucose 91 mg/dL 70-100 Blood Urea Nitrogen 20 mg/dL 6-24 Creatinine 0.80 mg/dL 0.50-1.40 BUN/Creatinine Ratio 25.0 High 8-20 Calcium 9.9 mg/dL 8.1-9.9 Total Protein 6.1 g/dL Low 6.2-8.1 Albumin 4.3 g/dL 3.6-5.4 Globulin 1.8 g/dL Low 2-4 Albumin/Globulin Ratio 2.4 1-3 Total Bilirubin 0.7 mg/dL 0.4-1.5 Alkaline Phosphatase 73 U/L 30-110 Alt 27 U/L 14-54 Ast 31 U/L 12-42 Egfr Non- 73.9 >60 Egfr 95.1 >60 49 CBC No Diff 08/30/2012 White Blood Count 7.2 10^3/uL 4.8-10.8 Red Blood Count 4.63 10^6/uL 4.0-5.4 Hemoglobin 14.2 g/dL 12.0-16.0 Hematocrit 42 % 35-47 Mean Corpuscular Volume 92 fL 80-97 Mean Corpuscular Hemoglobin 31 pg 27-31 Mean Corpuscular HGB Conc 34 g/dL 31-36 Red Cell Distribution Width 14 % 10.5-15 Platelet Count 255 10^3/uL 150-450 Mean Platelet Volume 9 um3 7.4-10.4 Laboratory test finding 08/30/2012 Cytology RUN DATE: <SEE NOTE> Urine Culture And 03/12/2012 Urine Culture (SEE NOTE) 51 Sensitivities Urine DIP 03/12/2012 Leukocytes 1+ High Neg Urine Nitrites pos Neg Urine pH 5 5-6 Total Protein, Urine neg Neg Urine Glucose norm Norm Urine Ketones neg Neg Urobilinogen norm Norm Urine Bilirubin neg Neg Urine Blood neg Neg Specific [place] na Low 1.01-1.02 CBC Auto Diff 01/31/2012 White Blood Count 8.3 10^3/uL 4.8-10.8 Red Blood Count 4.59 10^6/uL 4.0-5.4 Hemoglobin 14.0 g/dL 12.0-16.0 Hematocrit 42 % 35-47 Mean Corpuscular Volume 92 fL 80-97 Mean Corpuscular Hemoglobin 31 pg 27-31 Mean Corpuscular HGB Conc 33 g/dL 31-36 Red Cell Distribution Width 14 % 10.5-15 Platelet Count 297 10^3/uL 150-450 Mean Platelet Volume 9 um3 7.4-10.4 Abs Neutrophils 5.3 10^3/uL 1.5-7.7 Abs Lymphocytes 2.4 10^3/uL 1.0-4.8 Abs Monocytes 0.5 10^3/uL 0-0.8 Abs Eosinophils 0.1 10^3/uL 0-0.6 Abs Basophils 0 10^3/uL 0-0.2 Abs Nucleated RBC 0 10^3/uL Granulocyte % 63.7 % 38-83 Lymphocyte % 28.4 % 25-47 Monocyte % 6.6 % 1-9 Eosinophil % 1.0 % 0-6 Basophil % 0.3 % 0-2 Nucleated Red Blood Cells % 0 Laboratory test 01/31/2012 D Dimer Quantitative < 200 NG/ML Less Than 230 52 finding Comp Metabolic Panel 01/31/2012 Sodium 139 mmol/L 133-145 Potassium 4.1 mmol/L 3.5-5.0 Chloride 104 mmol/L 101-111 Co2 Carbon Dioxide 27.0 mmol/L 22-32 Anion Gap 8.0 mmol/L 2-11 Glucose 93 mg/dL 70-100 Blood Urea Nitrogen 23 mg/dL 6-24 Creatinine 0.80 mg/dL 0.50-1.40 BUN/Creatinine Ratio 28.8 High 8-20 Calcium 9.5 mg/dL 8.1-9.9 Total Protein 7.4 GM/DL 6.2-8.1 Albumin 4.5 GM/DL 3.6-5.4 Globulin 2.9 GM/DL 2-4 Albumin/Globulin Ratio 1.6 1-3 Total Bilirubin 0.7 mg/dL 0.1-1.0 53 Alkaline Phosphatase 72 U/L 30-110 Alt 22 U/L 14-54 Ast 26 U/L 12-42 Egfr Non- 73.9 >60 Egfr 95.1 >60 54 Laboratory test finding 01/31/2012 Creatine Kinase 110 U/L 0-200 CKMB 01/31/2012 CKMB In NG/ML 2.9 NG/ML 0.3-4.0 CKMB % 3.0 % 0-9 55 Laboratory test finding 01/31/2012 Troponin I 0 ng/mL 0-0.06 56 Myoglobin 22.50 NG/ML 14.3-65.8 Laboratory test finding 10/29/2011 TSH 0.48 MIU/ML 0.34-5.60 Urine DIP 10/29/2011 Leukocytes NEG Neg Urine Nitrites NEG Neg Urine pH 5 5-6 Total Protein, Urine NEG Neg Urine Glucose NORM Norm Urine Ketones NEG Neg Urobilinogen NORM Norm Urine Bilirubin NEG Neg Urine Blood NEG Neg Specific [place] NA Low 1.01-1.02 Laboratory test finding 09/24/2010 Strep Screen NEG Neg Laboratory test finding 08/26/2010 Cytology <SEE 57 NOTE> Urine DIP 08/26/2010 Leukocytes neg Neg Urine Nitrites neg Neg Urine pH 5-6 5-6 Total Protein, Urine tr Neg Urine Glucose norm Norm Urine Ketones neg Neg Urobilinogen norm Norm Urine Bilirubin neg Neg Urine Blood neg Neg Specific [place] n/a Low 1.01-1.02 Laboratory test finding 07/30/2010 TSH 1.39 MIU/ML 0.34-5.60 Laboratory test finding 07/02/2009 TSH 0.57 MIU/ML 0.34-5.60 Laboratory test finding 07/02/2009 Cytology <SEE 58 NOTE> Urine DIP 07/02/2009 Leukocytes NEG Neg Urine Nitrites NEG Neg Urine pH 5 5-6 Total Protein, Urine TRACE Neg Urine Glucose NORM Norm Urine Ketones NEG Neg Urobilinogen NORM Norm Urine Bilirubin NEG Neg Urine Blood NEG Neg Specific [place] NA Low 1.01-1.02 Laboratory test finding 10/02/2008 TSH 1.33 MIU/ML 0.34-5.60 Comp Metabolic Panel 10/02/2008 Sodium 138 mmol/L 135-145 Potassium 4.4 mmol/L 3.5-5.0 Chloride 106 mmol/L 101-111 Co2 (Carbon Dioxide) 28.0 mmol/L 22-32 Anion Gap 4.0 mmol/L 2-11 59 Glucose 99 mg/dL 70-100 60 BUN 12 mg/dL 6-24 Creatinine 0.80 mg/dL 0.50-1.40 One Over Creatinine 1.20 BUN/Creatinine Ratio 15.0 8-20 Calcium 9.2 mg/dL 8.1-9.9 61 Total Protein 6.1 GM/DL Low 6.2-8.1 Albumin 4.1 GM/DL 3.6-5.4 Globulin 2.0 GM/DL 2-4 Albumin/Globulin Ratio 2.1 1-3 Bilirubin Total 0.5 mg/dL 0.4-1.5 62 Alkaline Phosphatase 86 U/L 30-110 Alt (SGPT) 18 U/L 14-54 Ast (Sgot) 23 U/L 12-42 eGFR Non- 79.7 > 60 eGFR 96.5 > 60 63 CBC With Electronic Diff 10/02/2008 White Blood Count 5.1 CUMM 4.8-10.8 Red Cell Count 4.68 CUMM 4.2-5.4 Hemoglobin 14.5 g/dL 12.0-16.0 Hematocrit 43 % 35-47 Mean Corpuscular Volume 93 um3 79-97 Mean Corpuscular Hemoglob 31 pg 27-31 Mean Corpuscular HGB Cone 33 g/dL 32-36 Redcell Distribution WDTH 14 % 10.5-15 Platelet Count 278 CUMM 150-450 Mean Platelet Volume 8.1 um3 7.4-10.4 Gran % 55.6 % 38-83 Lymph % 34.8 % 25-47 Mononuclear % 7.0 % 1-9 Eosinophil % 2.1 % 0-6 Basophil % 0.5 % 0-2 Abs Lymphs 1.8 1.0-4.8 Abs Mononuclear 0.4 0-0.8 Absolute Neutrophil Count 2.8 1.5-7.7 Abs Eosinophils 0.1 0-0.6 Abs Basophils 0 0-0.2 Laboratory test finding 10/02/2008 Genital Culture PRESUMPTIVE ZACARIAS 64 <SEE NOTE> Vitamin D.25 Hydroxy 10/02/2008 25-Hydroxy Vitamin <4.0 ng/mL () D2 25-Hydroxy Vitamin D3 37 ng/mL () 25-Hydroxy Vitamin D Total 37 ng/mL () 65 Laboratory test finding 10/02/2008 Vitamin B12 293 pg/mL 180-914 Hemoglobin A1c 5.9 % <6.0 66 Laboratory test finding 07/24/2008 TSH 1.46 MIU/ML 0.34-5.60 Thyroxine Free 1.08 NG/ML 0.61-1.24 67 T3 Total 0.78 NG/ML 0.5-1.7 Laboratory test finding 04/17/2008 Cytology <SEE 68 NOTE> Urine DIP 04/17/2008 Leukocytes NEG Neg Urine Nitrites NEG Neg Urine pH 5 5-6 Total Protein, Urine NEG Neg Urine Glucose NORM Norm Urine Ketones NEG Neg Urobilinogen NORM Norm Urine Bilirubin NEG Neg Urine Blood NEG Neg Specific [place] NA Low 1.01-1.02 CBC 03/31/2008 WBC 8.4 x103 4.3-10.9 RBC 4.44 x106 3.80-5.30 Hemoglobin 13.3 g/dL 11.8-15.8 Hematocrit 39.5 % 35.0-47.0 MCV 89.0 fl 82.0-98.0 MCH 30.0 pg 27.5-33.5 MCHC 33.7 g/dL 32.0-36.0 RDW 13.0 % 11.5-14.5 Platelet Count 254 x103 130-400 MPV 10.3 fl 6.5-10.5 Segmented Neutrophils 72.8 % 44.0-74.0 Lymphocytes 20.0 % 15.0-45.0 Monocytes 7.0 % 2.0-13.0 Eosinophils 0.1 % 0.0-6.0 Basophils 0.1 % 0.0-2.0 Neutrophil Absolute 6.1 x103 1.4-7.0 Lymphocytes Absolute 1.7 x103 1.0-3.4 Monocyte Absolute 0.6 x103 0.2-1.0 Eosinophil Absolute 0.0 x103 0.0-0.5 Basophil Absolute 0.0 x103 0.0-0.2 Comprehensive Metabolic 03/31/2008 Glucose 108 mg/dL High 70-100 BUN 13 mg/dL 4-18 Creatinine, Serum 0.9 mg/dL 0.5-1.2 Sodium 136 mmol/L 136-146 Potassium 4.3 mmol/L 3.5-5.3 Chloride 101 mmol/L 98-110 Carbon Dioxide 21 mmol/L 20-32 Albumin 4.5 g/dL 3.5-4.7 Protein, Total 7.0 g/dL 6.4-8.3 Calcium 9.0 mg/dL 8.4-10.4 Alkaline Phosphatase 77 U/L 10-118 Sgot (Ast) 28 U/L 3-40 SGPT (Alt) 21 U/L 7-50 Bilirubin, Total 0.40 mg/dL 0.30-1.20 Laboratory test finding 03/31/2008 Kimball Test NEGATIVE Negative GFR (Calculated) 03/31/2008 GFR (Calculated) >60 69 Laboratory test finding 03/31/2008 Strep Screen neg Neg Flu Test A&B, Quickvue neg Laboratory test finding 01/24/2008 TSH 0.66 MIU/ML 0.34-5.60 Basic Metabolic Panel 01/24/2008 Sodium 142 mmol/L 135-145 Potassium 4.0 mmol/L 3.5-5.0 Chloride 107 mmol/L 101-111 Co2 (Carbon Dioxide) 28.0 mmol/L 22-32 Anion Gap 7.0 mmol/L 2-11 70 Glucose 90 mg/dL 70-100 71 BUN 16 mg/dL 6-24 Creatinine 0.68 mg/dL 0.50-1.40 One Over Creatinine 1.40 BUN/Creatinine Ratio 23.5 High 8-20 Calcium 9.7 mg/dL 8.1-9.9 72 CBC With Electronic Diff 01/24/2008 White Blood Count 6.9 CUMM 4.8-10.8 Red Cell Count 4.43 CUMM 4.2-5.4 Hemoglobin 13.5 g/dL 12.0-16.0 Hematocrit 40 % 35-47 Mean Corpuscular Volume 89 um3 79-97 Mean Corpuscular Hemoglob 31 pg 27-31 Mean Corpuscular HGB Cone 34 g/dL 32-36 Redcell Distribution WDTH 13 % 10.5-15 Platelet Count 326 CUMM 150-450 Mean Platelet Volume 7.7 um3 7.4-10.4 Gran % 54.1 % 38-83 Lymph % 37.3 % 20-45 Mononuclear % 7.1 % 1-9 Eosinophil % 1.2 % 0-6 Basophil % 0.3 % 0-2 Abs Lymphs 2.6 1.0-4.8 Abs Mononuclear 0.5 0-0.8 Absolute Neutrophil Count 3.8 1.5-7.7 Abs Eosinophils 0.1 0-0.6 Abs Basophils 0 0-0.2 Laboratory test finding 09/27/2007 TSH 0.90 MIU/ML 0.34-5.60 Laboratory test finding 05/17/2007 TSH 2.08 MIU/ML 0.34-5.60 Thyroid Panel 05/17/2007 Thyroxine 7.3 g/dL 5-12 Free Thyroxine 1.04 NG/ML 0.61-1.24 73 CBC With Manual Diff 04/07/2007 RBC Morphology NORMAL White Blood Count 5.3 CUMM 4.8-10.8 Absolute Neutrophil Count 2.6 Hematocrit 42 % 35-47 Hemoglobin 14.1 g/dL 12.0-16.0 Eosenophil 1 % 0-6 Lymphocyte 43 % 5-47 Mean Corpuscular HGB Cone 34 g/dL 32-36 Mean Corpuscular Hemoglob 31 pg 27-31 Mean Corpuscular Volume 91 um3 79-97 Monocyte 6 % 0-13 Mean Platelet Volume 8.2 um3 7.4-10.4 Platelet Count 352 CUMM 150-450 Polysegmented Neutrophil 50 % 38-83 Red Cell Count 4.61 CUMM 4.2-5.4 Redcell Distribution WDTH 13 % 10.5-15 Basic Metabolic Panel 04/07/2007 One Over Creatinine 1.25 Anion Gap 4.0 mmol/L 2-11 74 BUN 19 mg/dL 6-24 Calcium 9.4 mg/dL 8.7-10.2 Chloride 104 mmol/L 101-111 Co2 (Carbon Dioxide) 27.0 mmol/L 22-32 Glucose 89 mg/dL 70-105 Potassium 4.4 mmol/L 3.5-5.0 Sodium 135 mmol/L 135-145 BUN/Creatinine Ratio 23.8 High 8-20 Creatinine 0.8 mg/dL 0.5-1.4 Lipid Profile 04/07/2007 Cholesterol/HDL Ratio 2.04 AVERAGE 1-4.44 (Trig/Chol/HDL) Cholesterol 229 mg/dL High Less Than 200 75 Triglyceride 23 mg/dL Low 40-200 High Density Lipoprotein 112 mg/dL High 40-60 76 Low Density Lipoprotein 112 mg/dL High Less Than 100 77 Laboratory test finding 04/07/2007 TSH 2.17 MIU/ML 0.34-5.60 Thyroid Panel 03/08/2007 Thyroxine 8.8 g/dL 5-12 Free Thyroxine 1.51 NG/ML High 0.61-1.24 78 Laboratory test finding 03/08/2007 TSH 0.62 MIU/ML 0.34-5.60 Laboratory test finding 01/18/2007 TSH 0.48 MIU/ML 0.34-5.60 Thyroid Panel 09/07/2006 Thyroxine 7.5 g/dL 5-12 Free Thyroxine 1.15 NG/ML 0.61-1.24 79 Laboratory test finding 09/07/2006 TSH 0.67 MIU/ML 0.34-5.60 Urine DIP 08/03/2006 Leukocytes NEG Neg Urine Nitrites NEG Neg Urine pH 5 5-6 Total Protein, Urine NEG Neg Urine Glucose NORM Norm Urine Ketones NEG Neg Urobilinogen NORM, Norm Urine Bilirubin NEG Neg Urine Blood NEG Neg Specific [place] N/A Low 1.01-1.02 Thyroid Panel 08/03/2006 Thyroxine 10.2 g/dL 5-12 Free Thyroxine 1.56 NG/ML High 0.61-1.24 80 Laboratory test finding 08/03/2006 TSH 0.22 MIU/ML Low 0.34-5.60 1 Desirable <150 Borderline high 150-199 High 200-499 Very High >500 2 Desirable <200 Borderline high 200-239 High >239 3 Low <40 Desirable: 40-60 High: >60 4 Desirable: <100 mg/dL Near Optimal: 100-129 mg/dL Borderline High: 130-159 mg/dL High: 160-189 mg/dL Very High: >189 mg/dL 5 Because ethnic data is not always readily available, this report includes an eGFR for both -Americans and non- Americans. The National Kidney Disease Education Program (NKDEP) does not endorse the use of the MDRD equation for patients that are not between the ages of 18 and 70, are , have extremes of body size, muscle mass, or nutritional status, or are non- or non-. According to the National Kidney Foundation, irrespective of diagnosis, the stage of the disease is based on the level of kidney function: Stage Description GFR(mL/min/1.73 m(2)) 1 Kidney damage with normal or decreased GFR 90 2 Kidney damage with mild decrease in GFR 60-89 3 Moderate decrease in GFR 30-59 4 Severe decrease in GFR 15-29 5 Kidney failure <15 (or dialysis) 6 Normal Range 180 to 914 Indeterminate Range 145 to 180 Deficient Range <145 7 [id number] Because ethnic data is not always readily available, this report includes an eGFR for both -Americans and non- Americans. The National Kidney Disease Education Program (NKDEP) does not endorse the use of the MDRD equation for patients that are not between the ages of 18 and 70, are , have extremes of body size, muscle mass, or nutritional status, or are non- or non-. According to the National Kidney Foundation, irrespective of diagnosis, the stage of the disease is based on the level of kidney function: Stage Description GFR(mL/min/1.73 m(2)) 1 Kidney damage with normal or decreased GFR 90 2 Kidney damage with mild decrease in GFR 60-89 3 Moderate decrease in GFR 30-59 4 Severe decrease in GFR 15-29 5 Kidney failure <15 (or dialysis) 9 [id number] Desirable <150 Borderline high 150-199 High 200-499 Very High >500 11 Desirable <200 Borderline high 200-239 High >239 12 Low <40 Desirable: 40-60 High: >60 13 Desirable: <100 mg/dL Near Optimal: 100-129 mg/dL Borderline High: 130-159 mg/dL High: 160-189 mg/dL Very High: >189 mg/dL 14 Therapeutic target for the treatment of diabetes Mellitus patients is <7% HBA1C, and in selective patients <6.0%.Please refer to [place] [employer] Diabetic care guidelines for further information. 15 SEE RESULT BELOW Name: HERBER BOOTHEJorge Pham : [address]: Sal Chua NP Acct: [id number] Unit: [id number] AGE: 61 Location: [facility] Re05/16/16 SEX: F Status: REG REF SPEC: [id number] FAROOQ: 05/16/16-[address]: Sal Chua NP REQ: [id number] RECD: 05/16/16 STATUS: COMP _ SOURCE: URINE [facility]: ORDERED: Urine Culture COMMENTS: [id number] Urine Source: Random Procedure Result Reported Site Urine Culture Final 05/18/16- 0803 ML No growth of clinically significant organisms * ML - MAIN LAB ([facility]) . END OF REPORT * ML=Testing performed at Main Lab DEPARTMENT OF PATHOLOGY, [address] [place] [address] Jeet Santos M[address]D. Director [facility] # [id number] 16 [id number] 17 SEE RESULT BELOW Name: SHERI BOOTHE : [address]: aSl Chua NP Acct: [id number] Unit: [id number] AGE: 61 Location: [facility] Re02/13/16 SEX: F Status: REG REF SPEC: [id number] FAROOQ: 02/13/16-[address]: Sal Chua NP REQ: [id number] RECD: 02/13/16 STATUS: COMP _ SOURCE: URINE SPDESC: ORDERED: Urine Culture COMMENTS: [id number] Urine Source: Random Procedure Result Reported Site Urine Culture Final 02/15/16- 18 ML Organism 1 ESCHERICHIA COLI [place] Count >100,000 (Many) CFU/ML 1. ESCHERICHIA COLI M.I.C. RX --------- ------ Ampicillin 4 S Cefazolin <=4 S Cefepime <=1 S Ceftriaxone <=1 S Ciprofloxacin <=0.25 S Gentamicin <=1 S Levofloxacin <=0.12 S Meropenem <=0.25 S Nitrofurantoin <=16 S Tetracycline <=1 S Pipercillin/Tazobactam <=4 S Trimethoprim/Sulfamethoxazole <=20 S Amoxicillin/Clavulanic Acid <=2 S Aztreonam <=1 S Contact the Microbiology Department for any additional antibiotic reporting. * ML - MAIN LAB ([facility]) . END OF REPORT * ML=Testing performed at Main Lab DEPARTMENT OF PATHOLOGY, [address] [place] [address] Jeet Santos M.D. Director [facility] # [id number] 18 SEE RESULT BELOW Name: SHERI BOOTHE : [address]: Sal Chua NP Acct: [id number] Unit: [id number] AGE: 60 Location: [facility] Re06/04/15 SEX: F Status: REG REF SPEC: [id number] FAROOQ: 06/04/15-[address]: Sal Chua NP REQ: [id number] RECD: 06/04/15 STATUS: SOUT _ ORDERED: IMAGE ANALYSIS, HPV/Thin Prep, HPV 16/18 GENE FINAL DIAGNOSIS Negative for Intraepithelial lesion or Malignancy A. Ectocervical/Endocervical Specimen Adequacy: Satisfactory of evaluation Transformation zone component identified Patient Information: HPV: High risk HPV RNA testing regardless of pap results. HPV 16/18 Genotype for HPV pos Actual Specimen Date: 06/04/15 Date of Last Specimen: 05/30/12 ?: N Post Menopausal?: Y Date Time Test Result Flag (u) Normal Range 06/04/15 1639 HPV RNA RFLX GE Negative Negative The high-risk HPV types detected by the assay include: 16, 18, 31, 33, 35, 39, 45, 51, 52, 56, 58, 59, 66, and 68. Signed (signature on file) ELIA Wells (ASCP) 06/04 9714 This Pap test was evaluated with the assistance of the ThinPrep Test Imaging System. Due to cytologic findings at the winderman microscope, comprehensive manual rescreening by a Neurodiagnostic Technician may be required. The Pap Smear is a screening test designed to aid in the detection of premalignant and malignant conditions of the uterine cervix. It is not a diagnostic procedure and should not be used as the sole means of detecting cervical cancer. Both false- positive and false- negative reports do occur. Depending on your risk status, a Pap smear should be obtained and evaluated every 1-3 years. END OF REPORT * ML=Testing performed at Main Lab DEPARTMENT OF PATHOLOGY, [address] [place] [address] Jeet Santos M[address] Director [facility] # [id number] 19 The high-risk HPV types detected by the assay include: 16, 18, 31, 33, 35, 39, 45, 51, 52, 56, 58, 59, 66, and 68. 20 Results suggest response to immunization or prior exposure to the virus. REFERENCE VALUE Vaccinated: Positive (>=1.1 AI) Unvaccinated: Negative (<=0.8 AI) 21 Test Performed by: [address] [address] Physician Assistant Primary Care: Tariq Burns II, M.D., Ph.D. 22 Because ethnic data is not always readily available, this report includes an eGFR for both -Americans and non- Americans. The National Kidney Disease Education Program (NKDEP) does not endorse the use of the MDRD equation for patients that are not between the ages of 18 and 70, are , have extremes of body size, muscle mass, or nutritional status, or are non- or non-. According to the National Kid[employer] Foundation, irrespective of diagnosis, the stage of the disease is based on the level of kidney function: Stage Description GFR(mL/min/1.73 m(2)) 1 Kidney damage with normal or decreased GFR 90 2 Kidney damage with mild decrease in GFR 60-89 3 Moderate decrease in GFR 30-59 4 Severe decrease in GFR 15-29 5 Kidney failure <15 (or dialysis) 23 Desirable <150 Borderline high 150-199 High 200-499 Very High >500 24 Desirable <200 Borderline high 200-239 High >239 25 Low <40 Desirable: 40-60 High: >60 26 Desirable: <100 mg/dL Near Optimal: 100-129 mg/dL Borderline High: 130-159 mg/dL High: 160-189 mg/dL Very High: >189 mg/dL 27 Therapeutic target for the treatment of diabetes Mellitus patients is <7% HBA1C, and in selective patients <6.0%.Please refer to [place] [employer] Diabetic care guidelines for further information. 28 Because ethnic data is not always readily available, this report includes an eGFR for both -Americans and non- Americans. The National Kidney Disease Education Program (NKDEP) does not endorse the use of the MDRD equation for patients that are not between the ages of 18 and 70, are , have extremes of body size, muscle mass, or nutritional status, or are non- or non-. According to the National Kidney Foundation, irrespective of diagnosis, the stage of the disease is based on the level of kidney function: Stage Description GFR(mL/min/1.73 m(2)) 1 Kidney damage with normal or decreased GFR 90 2 Kidney damage with mild decrease in GFR 60-89 3 Moderate decrease in GFR 30-59 4 Severe decrease in GFR 15-29 5 Kidney failure <15 (or dialysis) 29 Because ethnic data is not always readily available, this report includes an eGFR for both -Americans and non- Americans. The National Kidney Disease Education Program (NKDEP) does not endorse the use of the MDRD equation for patients that are not between the ages of 18 and 70, are , have extremes of body size, muscle mass, or nutritional status, or are non- or non-. According to the National Kidney Foundation, irrespective of diagnosis, the stage of the disease is based on the level of kidney function: Stage Description GFR(mL/min/1.73 m(2)) 1 Kidney damage with normal or decreased GFR 90 2 Kidney damage with mild decrease in GFR 60-89 3 Moderate decrease in GFR 30-59 4 Severe decrease in GFR 15-29 5 Kidney failure <15 (or dialysis) 30 Normal Range 180 to 914 Indeterminate Range 145 to 180 Deficient Range <145 31 Test Performed by: [place] [address] Physician Assistant Primary Care: Fletcher Fitzgerald III, M.D. 32 -- REFERENCE VALUE -- <20.0 (Negative) Test Performed by: [place] [address] Physician Assistant Primary Care: Fletcher Fitzgerald III, M.D. 33 No bands detected 34 No bands detected 35 Specific serologic response to B. burgdorferi infection is not detected, but cannot rule out early infection during which low or undetectable antibody levels to B. burgdorferi may be present. If clinically indicated, a new serum specimen should be submitted in 7-14 days. CDC criteria require >=5 bands for IgG or >=2 bands for IgM for the Immunoblot to be considered positive. Bands (e.g.,p41) may be detected in patients without Lyme disease, and patterns not meeting the CDC criteria should be interpreted with caution. Immunoblot should be ordered only on specimens that are positive or equivocal by a FDA-licensed Lyme disease antibody screening test (e.g., EIA). Test Performed by: [place] [address] Physician Assistant Primary Care: Fletcher Fitzgerald III, M.D. 36 -- REFERENCE VALUE -- 25-HYDROXY D TOTAL (D2+D3) Optimum levels in the healthy population are 20-50, patients with bone disease may benefit from higher levels within this range. Test Performed by: [facility] [address] [address] Physician Assistant Primary Care: Fletcher Fitzgerald III, M.D. 37 Jeet Santos 38 Because ethnic data is not always readily available, this report includes an eGFR for both -Americans and non- Americans. The National Kidney Disease Education Program (NKDEP) does not endorse the use of the MDRD equation for patients that are not between the ages of 18 and 70, are , have extremes of body size, muscle mass, or nutritional status, or are non- or non-. According to the National Kidney Foundation, irrespective of diagnosis, the stage of the disease is based on the level of kidney function: Stage Description GFR(mL/min/1.73 m(2)) 1 Kidney damage with normal or decreased GFR 90 2 Kidney damage with mild decrease in GFR 60-89 3 Moderate decrease in GFR 30-59 4 Severe decrease in GFR 15-29 5 Kidney failure <15 (or dialysis) 39 >100 to <200 pg/mL: likely compensated congestive heart failure (CHF) 200 to 400 pg/mL: likely moderate CHF >400 pg/mL: likely moderate to severe CHF [facility] 40 RUN DATE: 06/01/13 [facility] LAB LIVE PAGE 1 RUN TIME: 1110 [address] [place], [place] [address] Specimen Inquiry Name: SHERI BOOTHE : [address]: Sal Chua NP Acct: [id number] Unit: [id number] AGE: 58 Location: [facility] Re05/30/13 SEX: F Status: REG REF SPEC: [id number] FAROOQ: 05/30/13-1539 [facility] [address]: Sal Chua NP REQ: [id number] RECD: 05/30/13 STATUS: COMP _ SOURCE: VAGINAL SPDESC: ORDERED: Genital Culture QUERIES: Medent Number [id number] Procedure Result Verified Site Genital Culture Final 06/01/13- 1110 ML Organism 1 NORMAL FELICIANO Quantity 1+ END OF REPORT * ML=Testing performed at Main Lab DEPARTMENT OF PATHOLOGY, [address] [place] [address] Jeet Santos M.D. Director [facility] Permit #[id number] 41 Because ethnic data is not always readily available, this report includes an eGFR for both -Americans and non- Americans. The National Kidney Disease Education Program (NKDEP) does not endorse the use of the MDRD equation for patients that are not between the ages of 18 and 70, are , have extremes of body size, muscle mass, or nutritional status, or are non- or non-. According to the National Kidney Foundation, irrespective of diagnosis, the stage of the disease is based on the level of kidney function: Stage Description GFR(mL/min/1.73 m(2)) 1 Kidney damage with normal or decreased GFR 90 2 Kidney damage with mild decrease in GFR 60-89 3 Moderate decrease in GFR 30-59 4 Severe decrease in GFR 15-29 5 Kidney failure <15 (or dialysis) 42 Because ethnic data is not always readily available, this report includes an eGFR for both -Americans and non- Americans. The National Kidney Disease Education Program (NKDEP) does not endorse the use of the MDRD equation for patients that are not between the ages of 18 and 70, are , have extremes of body size, muscle mass, or nutritional status, or are non- or non-. According to the National Kidney Foundation, irrespective of diagnosis, the stage of the disease is based on the level of kidney function: Stage Description GFR(mL/min/1.73 m(2)) 1 Kidney damage with normal or decreased GFR 90 2 Kidney damage with mild decrease in GFR 60-89 3 Moderate decrease in GFR 30-59 4 Severe decrease in GFR 15-29 5 Kidney failure <15 (or dialysis) 43 CKMB interpretation should be made in conjunction with clinical symptoms, patient history and EKG changes. 44 Reference Range and Interpretation: TnI (ng/mL) Interpretation Less Than 0.06 ng/mL Not supportive of diagnosis of SC 0.06 - 0.50 ng/mL Indeterminate: suggest serial studies if clinically indicated. Greater than 0.5 ng/mL Consistent with diagnosis of SC 45 RESULT: Ectocervical/Endocervical 46 For types 16, 18, 31, 33, 35, 39, 45, 51, 52, 56, 58, 59 and 68. Test Performed by: [address] [address] Physician Assistant Primary Care: Fletcher Fitzgerald III, M.D. 47 HDL Interpretation: Undesirable: High Risk: Less than 40 mg/dL Desirable: Low Risk: Greater than 60 mg/dL 48 LDL Interpretation: Low Risk Optimal Level: LDL Less than 100 mg/dL Near or Above Optimal: LDL 100-129 mg/dL Borderline High Risk: LDL 130-159 mg/dL High Risk: LDL 160-189 mg/dL Very High Risk: LDL Greater than 189 mg/dL 49 Because ethnic data is not always readily available, this report includes an eGFR for both -Americans and non- Americans. The National Kidney Disease Education Program (NKDEP) does not endorse the use of the MDRD equation for patients that are not between the ages of 18 and 70, are , have extremes of body size, muscle mass, or nutritional status, or are non- or non-. According to the National Kidney Foundation, irrespective of diagnosis, the stage of the disease is based on the level of kidney function: Stage Description GFR(mL/min/1.73 m(2)) 1 Kidney damage with normal or decreased GFR 90 2 Kidney damage with mild decrease in GFR 60-89 3 Moderate decrease in GFR 30-59 4 Severe decrease in GFR 15-29 5 Kidney failure <15 (or dialysis) 50 RUN DATE: 08/31/12 [facility] LAB LIVE PAGE 1 RUN TIME: [address] [place] [address] Specimen Inquiry Name: SHERI BOOTHE Vero : [address]: Sal Chua NP Acct: [id number] Unit: [id number] AGE: 57 Location: [facility] Re08/30/12 SEX: F Status: REG REF SPEC: [id number] FAROOQ: 08/30/12144 [facility] DR: Sal Chua NP REQ: [id number] RECD: 08/30/12 STATUS: SOUT _ ORDERED: IMAGE ANALYSIS, HPV / Thin Prep FINAL DIAGNOSIS Negative for Intraepithelial lesion or Malignancy COMMENTS: Specimen sent to [facility] in [place], [place] on 08/31/12 by [id number] at 1337. Results will be reported separately. A. Ectocervical/Endocervical Specimen Adequacy: Satisfactory of evaluation Transformation zone component cannot be definitely identified due to presence of atrophy or other hormonal changes Patient Information: HPV: High risk HPV DNA testing regardless of pap results. Actual Specimen Date: 08/30/12 Date of Last Specimen: 08/26/10 Post Menopausal?: Y Other Pertinent History: Tubal Ligation. Signed (signature on file) ELIA Bhatti (ASCP) 08/31/12 1344 This Pap test was evaluated with the assistance of the ThinPrep Test Imaging System. Due to cytologic findings at the winderman microscope, comprehensive manual rescreening by a Neurodiagnostic Technician may be required. The Pap Smear is a screening test designed to aid in the detection of premalignant and malignant conditions of the uterine cervix. It is not a diagnostic procedure and should not be used as the sole means of detecting cervical cancer. Both false- positive and false- negative reports do occur. Depending on your risk status, a Pap smear shoudl be obtained and evaluated every 1-3 years. END OF REPORT * ML=Testing performed at Main Lab DEPARTMENT OF PATHOLOGY, [facility] [employer] [place] [address] Jeet Santos M.D. Director [facility] Permit #[id number] RUN DATE: 03/16/12 [facility] LAB LIVE PAGE 1 RUN TIME: 944 [facility] [employer] [place], [place] [address] Specimen Inquiry Name: SHERI BOOTHE : [address]: Natali Melo MD Acct: [id number] Unit: [id number] AGE: 57 Location: [facility] Re03/12/12 SEX: F Status: REG REF SPEC: [id number] FAROOQ: 03/12/12-[address] [facility] [address]: Natali Melo MD REQ: [id number] RECD: 03/12/12 STATUS: COMP _ SOURCE: URINE SPDESC: ORDERED: Urine Culture QUERIES: Medent Number [id number] Procedure Result Verified Site Urine Culture Final 03/16/12- 0945 ML Organism 1 ESCHERICHIA COLI [place] Count 10-25,000 (Moderate) CFU/ML Organism 2 STREP GROUP B [place] Count 1-10,000 (Few) CFU/ML Susceptibility testing of penicillins and other B-lactams approved by FDA for treatment of Streptococcus pyogenes (Group A Strep) and Streptococcus agalactiae (Group B Strep) is not necessary for clinical purposes and need not be done routinely, since as with vancomycin, resistant strains have not been recognized. (CLSI L270-W62;p.66) Positive isolates will be saved for one week. Please call the Microbiology Laboratory if further susceptibility testing is needed. 1. ESCHERICHIA COLI M.I.C. RX --------- ------ Amikacin <=2 S Ampicillin >=32 R * Ampicillin/Sublactam 16 I Cefazolin <=4 S Cefepime <=1 S Cefoxitin <=4 S Ceftazidime <=1 S Ceftriaxone <=1 S Ciprofloxacin >=4 R Gentamicin >=16 R CONTINUED ON NEXT PAGE * ML=Testing performed at Main Lab DEPARTMENT OF PATHOLOGY, [facility] [employer] [place], [place] [address] Jeet Santos M.D. Director [facility] Permit #[id number] RUN DATE: 03/16/12 [facility] LAB LIVE PAGE 2 RUN TIME: [address] [employer] [place], [place] [address] Specimen Inquiry Patient: HERBER BOOTHEJorge Pham [id number] (Continued) Specimen: [id number] Collected: 03/12/12 Received: 03/12/12 (Continued) Procedure Result Verified Site Urine Culture Final (continued) 03/16/1258 1. ESCHERICHIA COLI (continued) M.I.C. RX --------- ------ Imipenem <=1 S Levofloxacin >=8 R Nitrofurantoin <=16 S Piperacillin >=128 R Tigecycline <=0.5 S Trimethoprim/Sulfamethoxazole >=320 R * These antibiotics are not available in the [facility] Formulary Contact the Microbiology Department for any additional antibiotic reporting. END OF REPORT * ML=Testing performed at Main Lab DEPARTMENT OF PATHOLOGY, [address] [place] [address] Jeet Santos M.D. Director [facility] Permit #[id number] 52 Please note: The following may produce a false positive D Dimer test: - Rheumatoid factor greater than 60 IU/ml - Plasma hemoglobin greater than 0.05 gm/dl - Bilirubin greater than 50 mg/dl - Lipids greater than 1000 mg/dl - FDP greater than 20 ug/ml 53 A metabolite of Naproxen, O-desmethylnaproxen, has been shown to interfere with the [place]endrass[place] method for measuring total bilirubin. Samples from patients who have taken Naproxen have shown spurious elevation in total bilirubin levels. 54 Because ethnic data is not always readily available, this report includes an eGFR for both -Americans and non- Americans. The National Kidney Disease Education Program (NKDEP) does not endorse the use of the MDRD equation for patients that are not between the ages of 18 and 70, are , have extremes of body size, muscle mass, or nutritional status, or are non- or non-. According to the National Kidney Foundation, irrespective of diagnosis, the stage of the disease is based on the level of kidney function: Stage Description GFR(mL/min/1.73 m(2)) 1 Kidney damage with normal or decreased GFR 90 2 Kidney damage with mild decrease in GFR 60-89 3 Moderate decrease in GFR 30-59 4 Severe decrease in GFR 15-29 5 Kidney failure <15 (or dialysis) 55 Interpretation %CK-MB; < 5% Not supportive of diagnosis of SC 5 - <10% Indeterminate; suggest serial studies 10% or > Consistent with diagnosis of SC 56 Reference Range and Interpretation: TnI (ng/ml) Interpretation Less Than 0.06 ng/mL Not supportive of diagnosis of SC 0.06 - 0.50 ng/ml Indeterminate: suggest serial studies if clinically indicated. Greater than 0.5 ng/mL Consistent with diagnosis of SC 57 ---- RUN DATE: 08/27/10 [facility] NMI LIVE PAGE 1 RUN TIME: 1540 Specimen Inquiry RUN USER: INTERFACE -- [id number] Status: REG REF Re08/26/10 Age/Sex: 55/F Unit#: [id number] Location: [facility] : 55 -- Specimen: [id number] SOUT Spec Date: 08/26/10 [facility] Dr: Natali arguello MD Spec Type: CYTOLOGY Received: 08/27/10 Copies to: SOURCE ECTOCERVICAL/ENDOCERVICAL Thin Prep with Reflex HPV Test PATIENT INFORMATION ACTUAL COLLECTION DATE: 08/26/10 DATE OF PRIOR SPECIMEN: 07/02/09 Last menstrual period not given. ADEQUACY OF SPECIMEN Satisfactory for evaluation * Transformation zone component cannot be definitely identified due to prese nce * of atrophy or other hormonal changes. * DIAGNOSIS NEGATIVE FOR INTRAEPITHELIAL LESION OR MALIGNANCY * This Pap test was evaluated with the assistance of the KranemPrep Pap Test Imaging System. The Pap Smear is a screening test designed to aid in the detection of premalign ant and malignant conditions of the uterine cervix. It is not a diagnostic procedure a nd should not be used as the sole means of detecting cervical cancer. Both false- positiv e and false-negative reports do occur. Depending on your risk status, a Pap smear dai uld be obtained and evaluated every one to three years. Initial evaluation performed by Nona CASILLAS([facility]) 08/27/10 Final Interpretation electronically signed by: Nona CASILLAS([facility]) 08/27/10 1538 -- -- DEPARTMENT OF PATHOLOGY, [address] [place] [address] [facility] Permit #[id number] Jeet Santos M.D. Director Reinier Booth M.D. Account Support Rep Dir lani -- 58 ---- RUN DATE: 07/03/09 [facility] NMI LIVE PAGE 1 RUN TIME: 1437 Specimen Inquiry RUN USER: INTERFACE -- Name: SHYANNSHERI Status: REG REF Re07/02/09 Age/Sex: 54/F Unit#: [id number] Location: [facility] : 55 -- Specimen: [id number] Spec Date: 07/02/[address]: Natali arguello MD Spec Type: CYTOLOGY Received: 07/03/09-09 Copies to: SOURCE ECTOCERVICAL/ENDOCERVICAL Thin Prep with Reflex HPV Test PATIENT INFORMATION ACTUAL COLLECTION DATE: 07/02/09 POST MENOPAUSAL? Yes DATE OF PRIOR SPECIMEN: 04/17/08 ADEQUACY OF SPECIMEN Satisfactory for evaluation * Transformation zone component identified * DIAGNOSIS NEGATIVE FOR INTRAEPITHELIAL LESION OR MALIGNANCY * This Pap test was evaluated with the assistance of the KranemPrep Pap Test Imaging System. The Pap Smear is a screening test designed to aid in the detection of premalign ant and malignant conditions of the uterine cervix. It is not a diagnostic procedure a nd should not be used as the sole means of detecting cervical cancer. Both false- positiv e and false-negative reports do occur. Depending on your risk status, a Pap smear dai uld be obtained and evaluated every one to three years. Initial evaluation performed by Nona CASILLAS([facility]) 07/03/09 Final Interpretation electronically signed by: Nona CASILLAS(ASCP) 07/03/09 1436 -- -- DEPARTMENT OF PATHOLOGY, [address] [place] [address] [facility] Permit #[id number] Jeet Santos M.D. Director Reinier Booth M.D. Account Support Rep Dir lani -- 59 Anion gap measurement may be of limited value in the presence of any alkalosis, especially in a combined acid base disorder. . 60 Note change in reference range as of 11/11/07. The change was based on recommendations from the [place] [employer]. 61 Please note change in reference range effective 07 . 62 A metabolite of Naproxen, O-desmethylnaproxen, has been shown to interfere with the Jendrassik-Wu method for measuring total bilirubin. Samples from patients who have taken Naproxen have shown spurious elevation in total bilirubin levels. 63 Because ethnic data is not always readily available, this report includes an eGFR for both -Americans and non- Americans. The National Kidney Disease Education Program (NKDEP) does not endorse the use of the MDRD equation for patients that are not between the ages of 18 and 70, are , have extremes of body size, muscle mass, or nutritional status, or are non- or non-. According to the National Kidney Foundation, irrespective of diagnosis, the stage of the disease is based on the level of kidney function: Stage Description GFR(mL/min/1.73 m(2)) 1 Kidney damage with normal or decreased GFR 90 2 Kidney damage with mild decrease in GFR 60-89 3 Moderate decrease in GFR 30-59 4 Severe decrease in GFR 15-29 5 Kidney failure <15 (or dialysis) 64 PRESUMPTIVE ZACARIAS. VAGINALIS NORMAL FELICIANO 65 -- REFERENCE VALUE -- 25-HYDROXY D TOTAL (D2+D3) Optimum levels in the normal population are 25-80 Test Performed by: [facility] Dpt of Lab Med and Pathology [address] [place] [address] Physician Assistant Primary Care: Fletcher Fitzgerald III, M.D. 66 THERAPEUTIC TARGET FOR THE TREATMENT OF DIABETES MELLITUS PATIENTS IS <7% HBA1C, AND IN SELECTIVE PATIENTS <6.0%. PLEASE REFER TO [place] [employer]ATION DIABETIC CARE GUIDELINES FOR FURTHER INFORMATION. 67 PLEASE NOTE NEW REFERENCE RANGES. 68 ---- RUN DATE: 04/18/08 [facility] NMI LIVE PAGE 1 RUN TIME: 1145 Specimen Inquiry RUN USER: INTERFACE -- [id number] Status: REG REF Re04/17/08 Age/Sex: 53/F Unit#: [id number] Location: [facility] : 55 -- Specimen: [id number] SOUT Spec Date: 04/17/08 Gino Crawford: Estrellita turcios MD Spec Type: CYTOLOGY Received: 04/18/08 Copies to: SOURCE ECTOCERVICAL/ENDOCERVICAL Thin Prep with Reflex HPV Test PATIENT INFORMATION ACTUAL COLLECTION DATE: 04/17/08 PATIENT HISTORY: NO HISTORY GIVEN ADEQUACY OF SPECIMEN Satisfactory for evaluation * Transformation zone component cannot be definitely identified due to prese nce * of atrophy or other hormonal changes. * DIAGNOSIS NEGATIVE FOR INTRAEPITHELIAL LESION OR MALIGNANCY * This Pap test was evaluated with the assistance of the KranemPrep Pap Test Imaging System. The Pap Smear is a screening test designed to aid in the detection of premalign ant and malignant conditions of the uterine cervix. It is not a diagnostic procedure a nd should not be used as the sole means of detecting cervical cancer. Both false- positive and false-negative reports do occur. Depending on your risk status, a Pap smear dai uld be obtained and evaluated every one to three years. Final Interpretation electronically signed by: Blaise ALARCON(ASCP) 04/18/08 114 5 -- -- DEPARTMENT OF PATHOLOGY, [address] [place] [address] [facility] Permit #[id number] Jeet Santos M.D. Director Reinier Booth M.D. Account Support Rep Dir lani -- 69 mL/min/1.73m2 . Normal Function or Mild Renal Disease, if clinically at risk: >or=60 Moderately decreased: 30 - 59 Severely decreased: 15 - 29 Renal Failure: <15 . Please note that the MDRD equation requires an additional adjustment for -Americans (multiply the GFR result by 1.210). . Glomerular Filtration Rate (GFR) is estimated based on the MDRD equation, which assumes a steady state for creatinine ([place] Int Med 139/2 137-149, 2003), as recommended by the National Kidney Disease Education Program in conjunction with the National Institutes of Health and the National Kidney Foundation. . Clinical conditions in which it may be necessary to measure GFR by using clearance methods include extremes of age and body size, severe malnutrition or obesity, diseases of skeletal muscle, paraplegia or quadriplegia, vegetarian diet, rapidly changing kidney function, and calculation of the dose of potentially toxic drugs that are excreted by the kidneys. 70 Anion gap measurement may be of limited value in the presence of any alkalosis, especially in a combined acid base disorder. . 71 Note change in reference range as of 11/11/07. The change was based on recommendations from the [place] [employer]. 72 Please note change in reference range effective 07 . 73 PLEASE NOTE NEW REFERENCE RANGES. 74 Anion gap measurement may be of limited value in the presence of any alkalosis, especially in a combined acid base disorder. . 75 Classification: Borderline High . 76 Classification: High . 77 CALCULATED LDL APPROXIMATES THE VALUE OF A DIRECT LDL MEASUREMENT. Classification: Near or above optimal . 78 PLEASE NOTE NEW REFERENCE RANGES. 79 PLEASE NOTE NEW REFERENCE RANGES. 80 PLEASE NOTE NEW REFERENCE RANGES. Procedures Date CPT Code Description Status Comment 06/26/2015 58668 Spirometry Completed 05/14/2015 29157 EKG, at Least 12 Leads Completed w/Interpretation and Report 11/02/2012 88307 Spirometry Completed 01/31/2012 99943 EKG, at Least 12 Leads Completed w/Interpretation and Report 01/31/2012 87933 EKG, at Least 12 Leads Completed w/Interpretation and Report 08/26/2010 51677 Spirometry Completed 07/02/2009 59775 EKG, at Least 12 Leads Completed w/Interpretation and Report 04/23/2006 Colonoscopy Completed normal, repeat in 10 years. Encounters Type Date Location Provider CPT E/M Dx Office Visit 12/01/2016 2:45p Main Office TAMMY Bolden-C 84469 R41.3 M25.552 D48.5 G47.30 M77.12 Z23 Office Visit 05/16/2016 2:00p Main Office TAMMY Bolden-C 04508 J01.90 Z11.59 Office Visit 01/28/2016 11:00a Main Office Sal Chua CONTRACT TECHNICIAN-C 33706 R10.30 Office Visit 12/24/2015 11:00a Main Office Sal Chua CONTRACT TECHNICIAN-C 05142 M54.2 F33.1 Z23 Office Visit 12/07/2015 3:15p [place] [address] J01.90 Z23 Office Visit 10/31/2015 5:00p [place] [address] J01.90 Office Visit 06/26/2015 10:00a Main Office Sal Chua CONTRACT TECHNICIAN-C 44533 R07.9 Office Visit 06/04/2015 1:30p Main Office Sal Chua CONTRACT TECHNICIAN-C 04424 Z00.00 E03.9 I42.9 Z12.31 Office Visit 05/14/2015 3:15p Main Office Sal Chua CONTRACT TECHNICIAN-C 84937 I42.9 Office Visit 03/20/2015 3:30p Main Office Sal Chua CONTRACT TECHNICIAN-C 47243 J06.9 E03.9 Z23 Office Visit 12/28/2014 3:30p Main Office Sal Chua, CONTRACT TECHNICIAN-C 45390 R30.0 F43.29 Office Visit 10/30/2014 10:15a Main Office Sal Chua, CONTRACT TECHNICIAN-C 62261 727.43 719.47 780.2 Office Visit 07/11/2014 3:15p Main Office Sal Chua, CONTRACT TECHNICIAN-C 11385 720.2 729.82 780.52 Office Visit 04/18/2014 3:45p Main Office Sal Chua, CONTRACT TECHNICIAN-C 35750 465.9 723.1 Office Visit 03/20/2014 4:30p Main Office Estrellita Chun M.D., R.D. 71585 461.8 466.0 Office Visit 01/03/2014 11:15a Main Office Sal Chua, CONTRACT TECHNICIAN-C 74754 780.93 V04.81 Office Visit 08/05/2013 2:45p Main Office Sal Chua, CONTRACT TECHNICIAN-C 91844 786.59 425.8 Office Visit 07/22/2013 2:00p Main Office Sal Chua, CONTRACT TECHNICIAN-C 89556 723.1 724.5 425.8 Office Visit 05/30/2013 2:45p Main Office Sal Chua, CONTRACT TECHNICIAN-C 25095 719.69 723.1 719.47 616.10 Office Visit 04/04/2013 10:00a Main Office Rosa Saleh CONTRACT TECHNICIAN-C 34313 719.97 Office Visit 01/06/2013 2:30p Main Office Sal Chua, CONTRACT TECHNICIAN-C 61650 726.19 726.19 Office Visit 11/02/2012 10:00a Main Office Sal Chua, CONTRACT TECHNICIAN-C 54568 425.8 518.89 Office Visit 08/30/2012 1:30p Main Office Sal Chua, CONTRACT TECHNICIAN-C 67984 V70.0 244.9 780.52 V72.62 Office Visit 03/17/2012 3:45p Main Office Rosa Saleh CONTRACT TECHNICIAN-C 50868 599.0 465.9 Office Visit 03/12/2012 1:30p Main Office Natali Melo M.D. 15918 599.0 786.09 Office Visit 01/31/2012 11:45a Main Office Felipe Cazares M.D. 40967 786.59 786.59 Office Visit 01/26/2012 4:00p Main Office Rosa GRECIA Saleh 37271 461.8 Office Visit 11/11/2011 11:30a Main Office Natali Melo M.D. 45505 244.9 780.52 780.79 Office Visit 05/20/2011 12:00p Main Office Natali Melo M.D. 65172 244.9 278.02 Office Visit 09/24/2010 3:00p Main Office GRECIA Bolden 02424 465.9 518.89 Office Visit 08/26/2010 2:00p Main Office Natali Melo M.D. 27796 V70.0 244.9 786.09 727.42 Office Visit 12/13/2009 3:45p Main Office GRECIA Bolden 35163 465.9 Office Visit 12/03/2009 1:45p Main Office Natali Melo M.D. 35720 244.9 780.79 782.9 V06.1 V04.81 Office Visit 07/02/2009 11:30a Main Office Natali Melo M.D. 80743 V72.31 V70.0 244.9 780.79 786.51 719.45 Office Visit 05/01/2009 8:45a Main Office GRECIA Bolden 87472 719.44 Office Visit 01/22/2009 2:00p Main Office Natali Melo M.D. 31577 465.9 240.9 Office Visit 12/18/2008 2:00p Main Office Natali Melo M.D. 10325 780.79 244.9 Office Visit 10/02/2008 10:00a Main Office Estrellita Chun M.D., R.DNissa 18825 780.79 616.10 Office Visit 07/24/2008 2:00p Main Office Natali Melo M.D. 70144 244.9 Office Visit 04/21/2008 4:00p Main Office TAMMY Bolden-C 98582 486 Office Visit 04/17/2008 1:30p Main Office Estrellita Chun M.D., R.Kierra 02278 V70.0 V72.31 465.9 244.9 Office Visit 03/31/2008 3:15p Main Office TAMMY Bolden-C 31454 465.9 Office Visit 01/24/2008 2:00p Main Office Natali Melo M.D. 68179 244.9 727.05 840.4 Office Visit 05/24/2007 2:00p Main Office Natali Melo M.D. 49748 244.9 465.9 Office Visit 08/03/2006 2:15p Main Office Natali Melo M.D. 10180 246.8 780.52 788.39 Plan of Care 03/11/2017 - Aidan Odom MDJ01.90 Acute sinusitis, unspecifiedNew Medication:Doxycycline Hyclate 100 mgComments:Symptoms and history are consistent with a sinusitis/laryngitis. Symptoms are currently acute and there is no indication of serious disease at this time.Recommended initial treatment with nasal saline and flonase. If this is not successful the patient may belt picker the antibiotic script and try this. I also don't think influenza is impossible, but it would not change treatment plan if positive so I didnot check.Discussed signs of worsening illness, patient will call if worsening or not improving.Recommendations:Self Management plan: -Hydration -Mucinex - Tylenol -TimeJ04.0 Acute laryngitis
[2017-03-21 05:46] LABS: EGFR Non-African American 77.1 (>60)
[2017-03-21 07:28] LABS: Urine Appearance Clear; Urine Blood Negative (Negative); Urine Color Yellow; Urine Ketones Negative (Negative); Urine Protein Negative (Negative); Urine Specific Gravity 1.028 (1.010-1.030); Urine Urobilinogen Negative (Negative)
[2017-03-21] MEDS ORDERED: Al Hydrox/Mg Hydrox/Simet LIQ* 30 ML UDC PO ONE (10:11)
[2017-03-21] MEDS ORDERED: Lidocaine 2% VISCOUS* 15 ML UDC PO ONE (10:11)
--- NOTE | 2017-03-21 10:34 | RAD ---
INDICATION: Chest pain shortness of breath COMPARISON: Chest x-ray dated May 02, 2014 TECHNIQUE: Single AP portable view of the chest was obtained. FINDINGS: Image quality is compromised due to the relative inferiority of a portable chest x-ray. There is a left upper chest cardiac pacemaker with 3 leads overlying the heart. The heart and mediastinum exhibit normal size and contour. The lungs are grossly clear. There is no evidence of a large pleural effusion. Visualized bones are normal for the patient's age. IMPRESSION: No radiographic evidence for acute cardiopulmonary abnormality on this portable chest x-ray.
--- NOTE | 2017-03-21 11:10 | RAD ---
HISTORY: Epigastric pain COMPARISONS: None TECHNIQUE: Multiple transverse and longitudinal ultrasound images were obtained of the right upper quadrant. FINDINGS: LIVER: The liver is normal in size measuring 15.1 cm in maximum cephalocaudal dimension. There is homogenously increased echogenicity of the liver without focal suspicious masses. Normal hepatic and portal venous blood flow is duplicated with color flow imaging. There is no gross intrahepatic biliary duct dilatation. GALLBLADDER AND EXTRAHEPATIC BILIARY DUCT: The gallbladder is normal in appearance without intraluminal stones or other soft tissue masses. There is no pericholecystic fluid or gallbladder wall thickening. The common bile duct measures a maximum diameter of 3 mm. PANCREAS: The portions of the pancreas not obscured by bowel gas are normal in appearance. RIGHT KIDNEY: The right kidney is normal in size, morphology and echogenicity. AORTA AND IVC: The visualized portions are normal in appearance and not pathologically dilated. IMPRESSION: HOMOGENOUSLY INCREASED ECHOGENICITY OF THE LIVER COULD BE SEEN WITH HEPATIC STEATOSIS OR OTHER CHRONIC INFILTRATIVE DISEASE OF THE LIVER.
[2017-03-21 12:30] VITALS: BP 122/86
--- NOTE | 2017-03-21 13:21 | CONS ---
CC: Naveed Dumas MD; Sal Chua NP CARDIOLOGY CONSULTATION: DATE OF CONSULT: 03/21/17 PRIMARY CARE PROVIDER: Sal Chua NP. REASON FOR CONSULT: The patient asked the emergency department to see a field nurse. The patient h as a pacer and followed by Dr. Dumas. HISTORY OF PRESENT ILLNESS: Sheri Boothe is a 62-year-old woman with a past cardiac history of a pac emaker. The patient states that before she had symptoms of fevers, nasal congestion. She was worried about sinus problems and she got started on doxycycline the day after , 03/17/17 . With this, she did develop some GI symptoms. She is a bit vague, but said she had "all of it" whe n I asked about nausea, vomiting, diarrhea and constipation. The patient developed some heaviness an d discomfort in the substernal region of the chest. She evening, 03/19/17 and then yesterda y, 03/20/17, after taking her pills at 2 to 3 in the afternoon, it was worse. She then stopped the d oxycycline and when it persisted this morning, she presented to the emergency department. She told t he emergency department and the hospitalist physicians that she wanted to be evaluated by a cardiolog ist. The patient is vague about what makes this discomfort worse. She states she thinks it gets a little better when she rests, but saying that she is having it right now during the exam lying at 40 degrees at rest. She denies any pleuritic component to it, positional component. She has a nonischemic cardiomyopathy, left bundle branch block. PAST MEDICAL HISTORY: 1. Nonischemic cardiomyopathy. 2. Pacemaker implantation - biventricular pacemaker defibrillator for depressed ejection fraction. 3. Hypothyroid disease. 4. Hypertension. 5. Obesity. CURRENT MEDICATIONS: Based on a list from her pocket are; 1. Toprol XL 50 mg a day. 2. Losartan 50 mg a day. 3. Furosemide 30 mg a day. 4. Levothyroxine 112 mcg a day. 5. Montelukast sodium 10 mg p.r.n. 6. Trazodone 100 mg a day. 7. Naprosyn 550 mg. 8. Mometasone furoate 50 mg b.i.d. for allergies. 9. Doxycycline this week as above. MEDICATION ALLERGIES: Include PENICILLIN and she is allergic to ADHESIVE TAPE. FAMILY HISTORY: Significant in that her mother had a history of coronary disease in her late 70s. H er paternal grandfather had a heart attack. Her father had an enlarged heart. SOCIAL HISTORY: The patient is a former smoker, smoked for 20 years less than a pack a day. Used to drink wine regularly 3 to 4 glasses of wine a day. No history of illicit drug use. Worked as a [employer]. REVIEW OF SYSTEMS: See history of present illness. Over the holidays, she developed signi ficant fevers, sinus problems, trouble breathing, virus and flu like symptoms, and then GI symptoms w ith the initiation of the doxycycline. She denies orthopnea, PND. She has a substernal chest pain v aguely described as above. No hematuria or dysuria. All other 14-point review of systems was unremar kable. PHYSICAL EXAM: General: On exam, the patient is a quite overweight, older middle- aged woman, in no acute distress. Vital Signs: She is 5 feet 5 inches, weighs 217 pounds with a BMI of 36. Emergenc y room vitals; blood pressure 117/73, her pulse is 79, respiratory rate is 25, oxygen saturation on r oom air is 96%, and temperature 98.6. HEENT: Pupils are equal and round. Mucous membranes moist. N mainor: Thick without appreciable thyromegaly or increase in JVP. Lungs: Breath sounds show diffuse w heezing and somewhat diminished. Coronary: S1 and S2 regular. A bit distant, but no murmurs, rubs, or extrasystoles. Her pacer defibrillator site in the left is intact and unremarkable. Abdomen: O verweight. Active bowel sounds. No epigastric discomfort. Unable to worsen pain with deep breathing or epigastric pressure. No appreciable hepatomegaly. Extremities: Lower extremities are free of ed neida and warm. DIAGNOSTIC STUDIES/LAB DATA: A 12-lead ECG shows normal sinus rhythm at a rate of 70 beats a minute with ventricular tracking. QRS is consistent with a biventricular device. White count 8.4, hemoglobin 13.9, and platelets 327,000. Influenza A and B are negative. Urinalysis ; specific gravity 1.028, white cells 1+, negative nitrites, trace esterase. Sodium 137, potassium 4 .2, chloride 103, bicarb 26, BUN 22, creatinine 0.76, glucose 113, AST 50, ALT 72, troponin #1 of 0.0 1, troponin #2 of 0.01. BNP of 24. INR 0.91, PTT 29.2. Cardiac catheterization on 10/14/16 showed ejection fraction less than 20%, normal coronary arteries. Cardiac output by Tab 4.6 L per minute a nd by thermodilution 5.9 meters per minute. Chest x-ray done today at 0416 is not yet read by Radiology, confirms her biventricular device with g ood lead placement with mild cephalization, but I do not appreciate significant decompensated congest ethel heart failure to my reading. IMPRESSION: In summary, Sheri Boothe is a 62-year-old woman who in 2012 was found to have severe non ischemic cardiomyopathy with ejection fraction of 20%. She underwent biventricular pacer defibrillat or and is on medical therapy for her cardiomyopathy. The patient presents to the ED in the setting of a viral illness with respiratory symptoms followed b y GI symptoms and substernal chest discomfort after initiation of doxycycline. I have a low suspicion of underlying arthrosclerotic heart disease based on the patient's history, bu t additionally her cath showing normal coronaries 4 years ago is very reassuring as well. Her negati ve troponins put her in a low risk category. Sheri is at risk for congestive heart failure and wheezing could be cardiac, but with her normal BNP and unremarkable chest x-ray, I do not feel she is in severe failure. Her LFTs could have a differen tial of decompensated congestive heart failure, poor pump function, but could also be related to fatt y liver based on her body habitus or she could have a cholestatic process ongoing as well contributin g to her GI symptoms. I do not feel Sheri needs to be admitted to rule out ischemia. Options for management would include a single dose of GI cocktail to see if this resolves her subster nal chest discomfort, which may be esophagitis related to illness and doxycycline use. It would not b e unreasonable to give a one-time Lasix dose to see if this improves the wheezing, but initiation of inhalers would also be reasonable. Sheri should avoid nonsteroidals and high salt foods and high fat foods going forward. [id number]/[facility] #: [id number]
--- NOTE | 2017-03-21 17:14 | ED ---
I, Beronica Doherty, scribed for Simon Van MD on 03/21/17 at 1157 . Progress - Progress Note Progress Note: Ms. Boothe presented with chest pain on a previous shift and Dr. Nogueira was consulted. He asked Dr. Roque to see the patient and she felt that Ms. Boothe did not have a cardiac issue. Ms. Boothe has recently been on doxycycline for URI symptoms and this could have caused an esophagitis so she was given a GI Cocktail which helped some. I will give her a few days of sucralfate to see if that helps and have her F/U with her PMD. Course/Dx - Diagnoses Provider Diagnoses: Ruled out for myocardial infarction, Pacemaker, Shortness of breath, Chest pain The documentation as recorded by the Chas lee Natalie accurately reflects the service I personally performed and the decisions made by me, Simon Van MD.
--- NOTE | 2017-03-22 04:45 | ED ---
Gay Haq Gabriel, scribed for Leonid Mcwilliams on 03/21/17 at 0407 . HPI Chest Pain - HPI Summary HPI Summary: This patient is a 62 year old F presenting to [facility] with a chief complaint of CP since 3 days ago. The patient rates the constant pain 3/10 in severity and located mid sternal. Symptoms aggravated by exertion. Patient reports SOB. Patient denies proactive cough and edema. Patient has a history CHF with a pacemaker. She has been experiencing flu like symptoms. - History of Current Complaint Chief Complaint: EDShortnessOfBreath Hx Obtained From: Patient Onset/Duration: Started Days Ago - 3, Still Present Timing: Constant Initial Severity: Mild Current Severity: Mild Pain Intensity: 3 Pain Scale Used: 0-10 Numeric Chest Pain Location: Mid Sternal Associated Signs and Symptoms: Positive: Shortness of Breath. 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, Other Cardiovascular Problems/Disorders - CHF/Pacer placed Denies: Hx Hypertension Respiratory History: Reports: Hx Pneumonia, Hx Sleep Apnea Denies: Hx Asthma, Hx Chronic Obstructive Pulmonary Disease (COPD) GI History: Reports: Other GI Disorders - LOOSE STOOL OCCASIONALLY Denies: Hx Ulcer History: Denies: Hx Dialysis, Hx Renal Disease Musculoskeletal History: Reports: Hx Rheumatoid Arthritis - RT SHOULDER, Hx Tendonitis - RIGHT SHOULDER, Other Musculoskeletal History - OLD INJURY TO RIGHT SHOULDER; CUBOID SYNDROME BILATERAL FEET Sensory History: Reports: Hx Contacts or Glasses - GLASSES Denies: Hx Hearing Aid Opthamlomology History: Reports: Hx Contacts or Glasses - GLASSES Psychiatric History: Reports: Hx Anxiety - POSSIBLE - Cancer History Hx Chemotherapy: No - Surgical History Surgery Procedure, Year, and Place: 2011 LEFT HAND BELOW INDEX FINGER EXCISION OF MASS, [facility]. 06/2010 LEFT WRIST GANGLION CYST [place]CISION[place] [facility] [place] CSECTION, [facility]. BILATERAL TUBAL LIGATION, [facility] [place]. 02/2013 [employer] PACEMAKER INSERTION, [place] Hx Anesthesia Reactions: Yes - PACEMAKER-WOKE DURING THE PROCEDURE - Immunization History Date of Tetanus Vaccine: unknown Infectious Disease History: No Infectious Disease History: Denies: Hx Clostridium Difficile, Hx Hepatitis, Hx Human Immunodeficiency Virus (HIV), Hx of Known/Suspected MRSA, Hx Shingles, Hx Tuberculosis, Traveled Outside the [place] in Last 30 Days - Family History Known Family History: Negative: Hypertension - Social History Alcohol Use: None Substance Use Type: Reports: None Smoking Status (MU): Former Smoker Type: Cigarettes Amount Used/How Often: 1 PPD Have You Smoked in the Last Year: No Review of Systems Positive: Chest Pain Positive: Shortness Of Breath. Negative: Cough Negative: Edema All Other Systems Reviewed And Are Negative: Yes Physical Exam - Summary Physical Exam Summary: Appearance: Well appearing, no pain distress Skin: warm, dry, reflects adequate perfusion Head/face: normal Eyes: EOMI, DAGMAR ENT: normal Neck: supple, non-tender Respiratory: CTA, breath sounds present Cardiovascular: RRR, pulses symmetrical Pace maker in chest Abdomen: non-tender, soft Bowel: present Musculoskeletal: normal, strength/ROM intact Neuro: normal, sensory motor intact, A&Ox3 Triage Information Reviewed: Yes Vital Signs On Initial Exam: Initial Vitals Temp Pulse Resp BP Pulse Ox 98.6 F 78 16 134/99 99 03/21/17 03:53 03/21/17 03:53 03/21/17 03:53 03/21/17 03:53 03/21/17 03:53 Vital Signs Reviewed: Yes Diagnostics - Vital Signs Vital Signs Temp Pulse Resp BP Pulse Ox 03/21/17 03:53 98.6 F 78 16 134/99 99 - Laboratory Lab Results: Lab Results 03/21/17 03/21/17 03/21/17 Range/Units 04:40 04:40 04:40 WBC 8.4 (3.5-10.8) 10^3/ul RBC 4.72 (4.0-5.4) 10^6/ul Hgb 13.9 (12.0-16.0) g/dl Hct 41 (35-47) % MCV 87 (80-97) fL MCH 30 (27-31) pg MCHC 34 (31-36) g/dl RDW 15 (10.5-15) % Plt Count 327 (150-450) 10^3/ul MPV 8 (7.4-10.4) um3 Neut % (Auto) 56.1 (38-83) % Lymph % (Auto) 32.8 (25-47) % Gilliam % (Auto) 8.4 (1-9) % Eos % (Auto) 2.3 (0-6) % Baso % (Auto) 0.4 (0-2) % Absolute Neuts (auto) 4.7 (1.5-7.7) 10^3/ul Absolute Lymphs (auto) 2.8 (1.0-4.8) 10^3/ul Absolute Monos (auto) 0.7 (0-0.8) 10^3/ul Absolute Eos (auto) 0.2 (0-0.6) 10^3/ul Absolute Basos (auto) 0 (0-0.2) 10^3/ul Absolute Nucleated RBC 0.01 10^3/ul Nucleated RBC % 0.1 INR (Anticoag Therapy) 0.91 (0.77-1.02) APTT 29.2 (26.0-36.3) seconds Sodium (133-145) mmol/L Potassium (3.5-5.0) mmol/L Chloride (101-111) mmol/L Carbon Dioxide (22-32) mmol/L Anion Gap (2-11) mmol/L BUN (6-24) mg/dL Creatinine (0.51-0.95) mg/dL Est GFR ( Amer) (>60) Est GFR (Non-Af Amer) (>60) BUN/Creatinine Ratio (8-20) Glucose (70-100) mg/dL Lactic Acid (0.5-2.0) mmol/L Calcium (8.6-10.3) mg/dL Magnesium (1.9-2.7) mg/dL Total Bilirubin (0.2-1.0) mg/dL AST (13-39) U/L ALT (7-52) U/L Alkaline Phosphatase (34-104) U/L Troponin I (<0.04) ng/mL B-Natriuretic Peptide 24 ( - 100) pg/mL Total Protein (6.4-8.9) g/dL Albumin (3.2-5.2) g/dL Globulin (2-4) g/dL Albumin/Globulin Ratio (1-3) Urine Color Urine Appearance Urine pH (5-9) Ur Specific Cory (1.010-1.030) Urine Protein (Negative) Urine Ketones (Negative) Urine Blood (Negative) Urine Nitrate (Negative) Urine Bilirubin (Negative) Urine Urobilinogen (Negative) Ur Leukocyte Esterase (Negative) Urine WBC (Auto) (Absent) Urine RBC (Auto) (Absent) Ur Squamous Epith Cells (Absent) Urine Bacteria (Absent) Urine Glucose (Negative) Influenza A (Rapid) (Negative) Influenza B (Rapid) (Negative) 03/21/17 03/21/17 03/21/17 Range/Units 04:40 04:40 05:02 WBC (3.5-10.8) 10^3/ul RBC (4.0-5.4) 10^6/ul Hgb (12.0-16.0) g/dl Hct (35-47) % MCV (80-97) fL MCH (27-31) pg MCHC (31-36) g/dl RDW (10.5-15) % Plt Count (150-450) 10^3/ul MPV (7.4-10.4) um3 Neut % (Auto) (38-83) % Lymph % (Auto) (25-47) % Gilliam % (Auto) (1-9) % Eos % (Auto) (0-6) % Baso % (Auto) (0-2) % Absolute Neuts (auto) (1.5-7.7) 10^3/ul Absolute Lymphs (auto) (1.0-4.8) 10^3/ul Absolute Monos (auto) (0-0.8) 10^3/ul Absolute Eos (auto) (0-0.6) 10^3/ul Absolute Basos (auto) (0-0.2) 10^3/ul Absolute Nucleated RBC 10^3/ul Nucleated RBC % INR (Anticoag Therapy) (0.77-1.02) APTT (26.0-36.3) seconds Sodium 137 (133-145) mmol/L Potassium 4.2 (3.5-5.0) mmol/L Chloride 103 (101-111) mmol/L Carbon Dioxide 26 (22-32) mmol/L Anion Gap 8 (2-11) mmol/L BUN 22 (6-24) mg/dL Creatinine 0.76 (0.51-0.95) mg/dL Est GFR ( Amer) 99.2 (>60) Est GFR (Non-Af Amer) 77.1 (>60) BUN/Creatinine Ratio 28.9 H (8-20) Glucose 113 H (70-100) mg/dL Lactic Acid 1.2 (0.5-2.0) mmol/L Calcium 9.8 (8.6-10.3) mg/dL Magnesium 2.0 (1.9-2.7) mg/dL Total Bilirubin 0.40 (0.2-1.0) mg/dL AST 50 H (13-39) U/L ALT 72 H (7-52) U/L Alkaline Phosphatase 89 (34-104) U/L Troponin I 0.01 (<0.04) ng/mL B-Natriuretic Peptide ( - 100) pg/mL Total Protein 7.1 (6.4-8.9) g/dL Albumin 4.3 (3.2-5.2) g/dL Globulin 2.8 (2-4) g/dL Albumin/Globulin Ratio 1.5 (1-3) Urine Color Urine Appearance Urine pH (5-9) Ur Specific Cory (1.010-1.030) Urine Protein (Negative) Urine Ketones (Negative) Urine Blood (Negative) Urine Nitrate (Negative) Urine Bilirubin (Negative) Urine Urobilinogen (Negative) Ur Leukocyte Esterase (Negative) Urine WBC (Auto) (Absent) Urine RBC (Auto) (Absent) Ur Squamous Epith Cells (Absent) Urine Bacteria (Absent) Urine Glucose (Negative) Influenza A (Rapid) Negative (Negative) Influenza B (Rapid) Negative (Negative) 03/21/17 03/21/17 Range/Units 06:57 07:19 WBC (3.5-10.8) 10^3/ul RBC (4.0-5.4) 10^6/ul Hgb (12.0-16.0) g/dl Hct (35-47) % MCV (80-97) fL MCH (27-31) pg MCHC (31-36) g/dl RDW (10.5-15) % Plt Count (150-450) 10^3/ul MPV (7.4-10.4) um3 Neut % (Auto) (38-83) % Lymph % (Auto) (25-47) % Gilliam % (Auto) (1-9) % Eos % (Auto) (0-6) % Baso % (Auto) (0-2) % Absolute Neuts (auto) (1.5-7.7) 10^3/ul Absolute Lymphs (auto) (1.0-4.8) 10^3/ul Absolute Monos (auto) (0-0.8) 10^3/ul Absolute Eos (auto) (0-0.6) 10^3/ul Absolute Basos (auto) (0-0.2) 10^3/ul Absolute Nucleated RBC 10^3/ul Nucleated RBC % INR (Anticoag Therapy) (0.77-1.02) APTT (26.0-36.3) seconds Sodium (133-145) mmol/L Potassium (3.5-5.0) mmol/L Chloride (101-111) mmol/L Carbon Dioxide (22-32) mmol/L Anion Gap (2-11) mmol/L BUN (6-24) mg/dL Creatinine (0.51-0.95) mg/dL Est GFR ( Amer) (>60) Est GFR (Non-Af Amer) (>60) BUN/Creatinine Ratio (8-20) Glucose (70-100) mg/dL Lactic Acid (0.5-2.0) mmol/L Calcium (8.6-10.3) mg/dL Magnesium (1.9-2.7) mg/dL Total Bilirubin (0.2-1.0) mg/dL AST (13-39) U/L ALT (7-52) U/L Alkaline Phosphatase (34-104) U/L Troponin I 0.01 (<0.04) ng/mL B-Natriuretic Peptide ( - 100) pg/mL Total Protein (6.4-8.9) g/dL Albumin (3.2-5.2) g/dL Globulin (2-4) g/dL Albumin/Globulin Ratio (1-3) Urine Color Yellow Urine Appearance Clear Urine pH 6.0 (5-9) Ur Specific Cory 1.028 (1.010-1.030) Urine Protein Negative (Negative) Urine Ketones Negative (Negative) Urine Blood Negative (Negative) Urine Nitrate Negative (Negative) Urine Bilirubin Negative (Negative) Urine Urobilinogen Negative (Negative) Ur Leukocyte Esterase Trace H (Negative) Urine WBC (Auto) 1+(6-10/hpf) H (Absent) Urine RBC (Auto) Absent (Absent) Ur Squamous Epith Cells Present H (Absent) Urine Bacteria Absent (Absent) Urine Glucose Negative (Negative) Influenza A (Rapid) (Negative) Influenza B (Rapid) (Negative) Result Diagrams: 03/21/17 04:40 03/21/17 04:40 Lab Statement: Any lab studies that have been ordered have been reviewed, and results considered in the medical decision making process. - Radiology CXR Radiology Interpretation Completed By: ED Physician - no acute disease - EKG 04:16 Cardiac Rate: NL EKG Rhythm: Sinus Rhythm - at 73 BPM EKG Interpretation: Paced rhythm Chest Pain Course/Dx - Diagnoses Provider Diagnoses: Ruled out for myocardial infarction, Pacemaker, Shortness of breath, Chest pain - Provider Notifications Discussed Care Of Patient With: Maykel Nogueira Time Discussed With Above Provider: 06:49 Instructed by Provider To: Other - We discussed patient care with Dr. Nogueira, Hospitalist and he stated that he will have cardiology come and see the patient. Discharge - Discharge Plan Condition: Stable Disposition: HOME Discharge Disposition Comment: Patient is signed out to Dr. Van, pending disposition, awaiting dispositi Prescriptions: Sucralfate TAB* [Carafate*] 1 gm PO QID #20 tab Patient Education Materials: Chest Pain (ED) Referrals: Sal Chua, ELECTROMECHANICAL EQUIPMENT ASSEMBLER [Primary Care Provider] - 1 Week Additional Instructions: Follow up with your primary care physician next week. Take Carafate as prescribed. Return to the Emergency Department if any new or worsening symptoms occur. The documentation as recorded by the Gay lee Gabriel accurately reflects the service I personally performed and the decisions made by , Leonid Mcwilliams.
== END 2017-03-21 12:33 | disposition home or self-care (01) ==
LOC: ED 03:51
DX: R06.02 Shortness of breath (principal); Z95.0 Presence of cardiac pacemaker; R07.9 Chest pain, unspecified; Z87.891 Personal history of nicotine dependence
CPT/HCPCS: 36415; 71010; 76705; 80053; 81003; 81015; 83605; 83735; 83880; 84484; 85025; 85610; 85730; 87086; 87502; 93005; 99282; A9270-GY

== ENCOUNTER → 2017-05-18 08:00 | Day surgery (SDC) | payer MEDICARE, MEDICAID ==
[~2017-05-18 08:00] MED LIST: Clindamycin 900 MG IVPREMIX(* 900 MG/50 ML SDV IV ONE; Diazepam TAB(*) 5 MG ONE; Lidocaine 1% INJ* 10 MG/ML 30 ML SDV ONE; Midazolam* 1 MG/ML 5 ML VIAL (5 MG) ONE; fentaNYL* 50 MCG/ML 2 ML VIAL (100 MCG VIAL) ONE
--- NOTE | 2017-05-19 12:17 | OP ---
DATE OF OPERATION: 05/18/17 - [facility] CATH DATE OF : 55. SURGEON: Naveed Dumas MD. ANESTHESIA: Local anesthesia with conscious sedation. PRE-OP DIAGNOSIS: Premature battery failure of her ICD. POST-OP DIAGNOSIS: Premature battery failure of her ICD. OPERATIVE PROCEDURE: Biventricular ICD generator change. ESTIMATED BLOOD LOSS: Nil. COMPLICATIONS: None. INDICATIONS: The patient is a 62-year-old female with a history of nonischemic cardiomyopathy, history of ICD implantation in the past for her cardiomyopathy. The patient noted a noise coming from her ICD and it was interrogated. It was found to have early premature battery failure and generator change was recommended by the cell liner. DESCRIPTION OF PROCEDURE: The patient was brought to the procedure room in a fasting state. Informed consent had been obtained prior to the procedure. All labs were reviewed. The patient was placed supine on the procedure table. Her left deltopectoral area was cleaned and draped in usual fashion. 1% lidocaine was used for local anesthesia. A 4.5 cm incision was made in the superior aspect of the ICD and blunt dissection was carried down to the fiber sheath. The fiber sheath was opened and the ICD was removed from the pocket. The ICD was detached from the leads. The explanted device was a [employer] model N140 serial number [id number]. The pocket was flushed with normal saline. A new ICD was attached appropriately to the leads. The new ICD is a [employer] model G150 serial number [id number]. The device was placed in the pocket. The surgical incision was closed in 3 layers. The patient was returned to the holding area in stable condition. [id number]/[facility] #: [id number] [facility]PITALBlaise
== END | disposition home or self-care (01) ==
LOC: CHICATH 08:00
PROVIDERS: ATTEND Specialist
DX: Z45.02 Encounter for adjustment and management of automatic implantable cardiac defibrillator (principal); I42.9 Cardiomyopathy, unspecified; I44.7 Left bundle-branch block, unspecified; E66.9 Obesity, unspecified; G47.33 Obstructive sleep apnea (adult) (pediatric); Z87.891 Personal history of nicotine dependence
CPT/HCPCS: 33264; 88300; 99156; 99157; A9270-GY; C1882; J2250; J3010

== ENCOUNTER 2019-03-21 09:58 | Emergency (ER) | payer MEDICARE ==
[2019-03-21 10:25] LABS: ABS Eosinophils 0.2 10^3/ul (0-0.6); ABS Lymphocytes 2.3 10^3/ul (1.0-4.8); ABS Monocytes 0.5 10^3/ul (0-0.8); ABS Neutrophils 4.6 10^3/ul (1.5-7.7); Eosinophil % 2.6 %; Hematocrit 43 % (35-47); Hemoglobin 14.8 g/dL (12.0-16.0); Lymphocyte % 29.7 %; Mean Corpuscular HGB Conc 35 g/dL (31-36); Mean Corpuscular Hemoglobin 31 pg (27-31); Mean Corpuscular Volume 89 fL (80-97); Mean Platelet Volume 7.9 fL (7.4-10.4); Nucleated Red Blood Cells % 0.1; Platelet Count 278 10^3/uL (150-450); Red Cell Distribution Width 14 % (10-15); White Blood Count 7.6 10^3/uL (3.5-10.8)
--- NOTE | 2019-03-21 10:25 | ED ---
HPI Chest Pain - HPI Summary HPI Summary: 64-year-old female with significant past medical history of congestive heart failure with pacemaker placement presents to emergency department today complaining of chest pain for 5 days. Patient states this pain is a 4 out of 10 "pressure" in the epigastric and right anterior portion of the chest and has been constant and not resolved since it began 5 days ago. Patient states she believes this pain is from "my hallways are narrow and I walked into the wall a week ago and my symptoms began after that". She denies past history of myocardial infarction but endorses significant family history of myocardial infarction. She denies associated lightheadedness, changes in vision, numbness or tingling, shortness of breath, abdominal pain. Patient denies alcohol use, smoking, recreational drug use. The patient denies recent travel, surgery, immobilization. Patient denies fever, abdominal pain, pain with urination, rash , changes in vision. Pt states her last stress test was done approx. 5 years ago. - History of Current Complaint Chief Complaint: EDChestPainROMI Time Seen by Provider: 03/21/19 10:07 Hx Obtained From: Patient Onset/Duration: Started Days Ago Timing: Constant Initial Severity: Mild Current Severity: Mild Pain Intensity: 2 Pain Scale Used: 0-10 Numeric Chest Pain Location: Lower Sternal, Right Anterior Chest Pain Radiates: No Character: Pressure/Squeezing Aggravating Factor(s): Nothing Alleviating Factor(s): Nothing Associated Signs and Symptoms: Positive: Negative - Allergy/Home Medications Allergies/Adverse Reactions: Allergies Allergy/AdvReac Type Severity Reaction Status Date / Time Penicillins Allergy Unknown Unknown Verified 03/21/19 10:22 Reaction Details Adhesive Tape Allergy BURNING Verified 03/21/19 10:22 Home Medications: Home Medications Potassium Gluconate [Potassium] 550 mg PO DAILY 03/21/19 [History Confirmed ] PMH/Surg Hx/FS Hx/Imm Hx Endocrine/Hematology History: Reports: Hx Thyroid Disease Denies: Hx Diabetes, Hx Systemic Lupus Erythematosus Cardiovascular History: Reports: Hx Congestive Heart Failure, Hx Coronary Artery Disease, Hx Pacemaker/ICD - [employer] PAC[employer]ER, 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, Other Cardiovascular Problems/Disorders - CHF/Pacer placed Denies: Hx Hypertension Respiratory History: Reports: Hx Pneumonia, Hx Sleep Apnea Denies: Hx Asthma, Hx Chronic Obstructive Pulmonary Disease (COPD) GI History: Reports: Other GI Disorders - LOOSE STOOL OCCASIONALLY Denies: Hx Ulcer History: Denies: Hx Dialysis, Hx Renal Disease Musculoskeletal History: Reports: Hx Rheumatoid Arthritis - RT SHOULDER, Hx Tendonitis - RIGHT SHOULDER, Other Musculoskeletal History - OLD INJURY TO RIGHT SHOULDER; CUBOID SYNDROME BILATERAL FEET Sensory History: Reports: Hx Contacts or Glasses - GLASSES Denies: Hx Hearing Aid Opthamlomology History: Reports: Hx Contacts or Glasses - GLASSES Psychiatric History: Reports: Hx Anxiety - POSSIBLE - Cancer History Hx Chemotherapy: No Hx Radiation Therapy: No - Surgical History Surgery Procedure, Year, and Place: 2011 LEFT HAND BELOW INDEX FINGER EXCISION OF MASS, [facility] [place]. 06/2010 LEFT WRIST GANGLION CYST EXCISION, [facility]. 1979 CSECTION, [facility]. BILATERAL TUBAL LIGATION, [facility] [place]. 02/2013 [employer] PACEMAKER INSERTION, [facility] Anesthesia Reactions: Yes - PACEMAKER-WOKE DURING THE PROCEDURE - Immunization History Date of Tetanus Vaccine: unknown Infectious Disease History: No Infectious Disease History: Denies: Hx Clostridium Difficile, Hx Hepatitis, Hx Human Immunodeficiency Virus (HIV), Hx of Known/Suspected MRSA, Hx Shingles, Hx Tuberculosis, Traveled Outside the [place] in Last 30 Days - Family History Known Family History: Negative: Hypertension - Social History Alcohol Use: None Substance Use Type: Reports: None Smoking Status (MU): Former Smoker Type: Cigarettes Amount Used/How Often: 1 PPD Have You Smoked in the Last Year: No Review of Systems Constitutional: Negative Eyes: Negative ENT: Negative Positive: Chest Pain. Negative: Palpitations Respiratory: Negative Gastrointestinal: Negative Genitourinary: Negative Musculoskeletal: Negative Skin: Negative Neurological: Negative Psychological: Normal All Other Systems Reviewed And Are Negative: Yes Physical Exam Triage Information Reviewed: Yes Vital Signs On Initial Exam: Initial Vitals Temp Pulse Resp BP Pulse Ox 96.8 F 83 18 129/78 96 03/21/19 10:06 03/21/19 10:06 03/21/19 10:06 03/21/19 10:06 03/21/19 10:06 Vital Signs Reviewed: Yes Appearance: Positive: Well-Appearing, No Pain Distress, Well-Nourished Skin: Positive: Warm, Skin Color Reflects Adequate Perfusion Eyes: Positive: EOMI, DAGMAR ENT: Positive: Hearing grossly normal Respiratory/Lung Sounds: Positive: Clear to Auscultation, Breath Sounds Present Cardiovascular: Positive: RRR, S1, S2 Abdomen Description: Positive: Nontender, Soft Bowel Sounds: Positive: Present Musculoskeletal: Positive: Strength/ROM Intact Neurological: Positive: Sensory/Motor Intact, Alert, Oriented to Person Place, Time Psychiatric: Positive: Normal AVPU Assessment: Alert Procedures - Sedation Patient Received Moderate/Deep Sedation with Procedure: No Diagnostics - Vital Signs Vital Signs Temp Pulse Resp BP Pulse Ox 03/21/19 10:06 96.8 F 83 18 129/78 96 - Laboratory Result Diagrams: 03/21/19 10:13 03/21/19 10:13 Lab Statement: Any lab studies that have been ordered have been reviewed, and results considered in the medical decision making process. Chest Pain Course/Dx - Course Course Of Treatment: The patient was evaluated for chest pain in the emergency department. They were promptly seen and examined. Laboratory studies, diagnostic films and an EKG were performed to investigate the patients risk for acute cardiopulmonary pathology. Pericarditis, ACS, pneumothorax, pulmonary embolism and aortic dissection were all considered in the workup of this patient. EKG revealed atrial sensed ventricular paced rhythm at a rate of 84 bpm. Normal intervals. No evidence of myocardial infarction. These findings are unchanged when compared to prior EKG done on 03/21/2017. Labs returned showing no significant abnormalities. Initial troponin 0.01. Serial troponin shows no change at 0.01. HEART Score 4, PERC negative. Due to patient's story and laboratory studies I do not believe the patient's symptoms to be cardiac in nature. She is to follow-up with her registered mail clerk Dr. Dumas, in one to 2 days for further evaluation and management. - Chest Pain Differential Diagnosis/HQI/PQRI: Acute VA, ACS, Angina, CHF, Pulmonary Edema, Pulmonary Embolism - Diagnoses Provider Diagnoses: Chest pain Discharge ED - Sign-Out/Discharge Documenting (check all that apply): Patient Departure - Discharge Plan Condition: Stable Disposition: HOME Patient Education Materials: Chest Pain (ED) Referrals: Sal Chua NP [Primary Care Provider] - Naveed Dumas MD [Medical Doctor] - 1 Day Additional Instructions: You were seen in the emergency department today for chest pain. There appears to be no life threatening pathology causing your symptoms which requires intervention at this time. I am unsure what's causing your symptoms however, cardiac origin cannot be ruled out. Please follow up with your primary care provider or registered mail clerk for further evaluation and management of your symptoms and for possible outpatient echocardiogram and stress test. Please return to the emergency department immediately if you develop any new or worsening symptoms. - Billing Disposition and Condition Condition: STABLE Disposition: Home
[2019-03-21 10:28] LABS: INR 0.93 (0.82-1.09)
--- OUTSIDE RECORDS SUMMARY | 2019-03-21 10:41 | XMS REPORT | Continuity of Care Document ---
:1955 External Reference #:[id number] Author Name Whitney Mays N.P. (transmitted by agent of provider Misti Hamilton) Address [facility] [facility], [place] [address] Care Team Providers Name Role Phone Sal Chua NP - Family Care Team Information Cotton Picker Operator [phone] Hai Plummer MD - Clinical Care Team Information Cotton Picker Operator [phone] Cardiac Electrophysiology Problems Active Problems Provider Date Left bundle branch block Naveed Dumas M.D. Onset: 03/09/2013 Primary cardiomyopathy Naveed Dumas M.D. Onset: 03/09/2013 Automatic implantable cardiac defibrillator Naveed Dumas M.D. Onset: in situ Cervical spondylosis without myelopathy Vj Iglesias M.D. Onset: 07/07/2013 Ganglion of hand Delmy Johnson M.D. Onset: 01/04/2015 Epidermoid cyst Delmy Johnson M.D. Onset: 01/04/2015 Cardiomyopathy, unspecified Ica Pacer Schedule Onset: 03/07/2015 Ganglion of hand JACQUELYN Castellanos Onset: 03/19/2015 Obstructive sleep apnea syndrome Tari Reed MD Onset: 04/24/2015 Obesity Tari Reed MD Onset: 04/24/2015 Social History Type Date Description Comments Sex Unknown ETOH Use Rarely consumes alcohol Tobacco Use Start: Unknown Patient is a former hx 1/2 pack End: Unknown smoker cigarettes per day, quit 2000 Recreational Drug Use Denies Drug Use Smoking Status Reviewed: 01/24/19 Patient is a former hx 1/2 pack smoker cigarettes per day, quit 2000 Exercise Type/Frequency Exercises regularly Exercise Type/Frequency Yard work, house work swim in winter Allergies, Adverse Reactions, Alerts Active Allergies Reaction Severity Comments Date Penicillin 03/09/2013 Tape blister 03/09/2013 Inactive Allergies NKDA 03/08/2013 Medications Active Medications SIG Qnty Indications Ordering Date Provider Losartan Potassium 2 by mouth every 180tabs Naveed Lozada 12/31/2018 25mg day Brand, M.D. Tablets Metoprolol Succinate 1 by mouth every 90tabs Naveed Lozada 11/23/2013 ER day Brand, M.D. 50mg Tablets ER 24HR Lasix 1 tablet by mouth 90tabs Naveed Lozada 01/27/2013 20mg Tablets every day as Brand, M.D. needed Levothyroxine Sodium 1 po qd 90tabs Unknown 112mcg Tablets Montelukast Sodium 1 po qd as needed 30tabs Unknown 10mg summer time Tablets Flector topical once a 60units Unknown 1.3% Patches day as needed Trazodone HCL 1 tablet at 30tabs Unknown 100mg bedtime Tablets Tylenol as needed Unknown Potassium OTC 1 tablet po 2-3 Unknown times a week Calcium 1 daily, when Unknown 500mg Chewtabs remembers Naproxen Sodium take 1 tablet by Unknown 550mg mouth twice a day Tablets with food if needed for pain Mometasone Furoate Instill 2 Sprays Unknown Into Each Nostril 50mcg/Act Suspension Once Daily as needed Advil PM as need for sleep Unknown ( does not take trazadone with) Melatonin 1 tab by mouth at Unknown 10mg Capsules bedtime as needed for insomnia CBD Oil 25ml SL (7-10 Unknown drops) as needed for arthritis pain Power Pack 1 packet po qd Unknown prn Immunizations Description No Information Available Vital Signs Date Vital Result Comment 01/24/2019 3:16pm Height 65 inches 5'5" Weight 219.00 lb Heart Rate 77 /min BP Systolic 129 mmHg BP Diastolic 88 mmHg O2 % BldC Oximetry 97 % BMI (Body Mass Index) 36.4 kg/m2 11/03/2018 3:33pm Height 65 inches 5'5" Weight 218.00 lb with shoes Heart Rate 80 /min left radial BP Systolic Sitting 118 mmHg Lue reg cuff BP Diastolic Sitting 72 mmHg Lue reg cuff BP Systolic Standing 118 mmHg Lue reg cuff BP Diastolic Standing 78 mmHg Lue reg cuff BMI (Body Mass Index) 36.3 kg/m2 Ejection Fraction 45-50% ECHO 06/16/2016 Results Test Acquired Date Facility Test Result H/L Range Note Laboratory test 01/24/2019 [facility] [place]/Y <pending> finding [address]: [place] [address] Dna [phone] Procedures Date Code Description Status 11/03/2018 84664 Icd Eval With Iterative Adjustmt Multiple Lead System Completed 11/03/2018 04396 Icd Eval With Iterative Adjustmt Multiple Lead System Completed 12/21/2017 [id number] Colonoscopy Completed Medical Devices Description No Information Available Encounters Type Date Location Provider Dx Diagnosis Office Visit 11/03/2018 [facility] Naveed Lozada I42.9 Cardiomyopathy, 3:30p Of Aleyda Dumas M.D. unspecified Z95.810 Presence of automatic (implantable) cardiac defibrillator R94.31 Abnormal electrocardiogram [ECG] [EKG] Assessments Date Code Description Provider 01/24/2019 N76.1 Subacute and chronic vaginitis Whitney Mays N.P. 01/24/2019 R87.810 Cervical high risk human papillomavirus Whitney Mays N.Regine (HPV) Dna test positive 01/24/2019 R10.2 Pelvic and perineal pain Jana Uribe.Regine 11/03/2018 I42.9 Cardiomyopathy, unspecified Naveed Dumas M.D. 11/03/2018 I42.9 Cardiomyopathy, unspecified Ica Pacer Schedule 11/03/2018 Z95.810 Presence of automatic (implantable) cardiac Naveed Dumas M.D. defibrillator 11/03/2018 Z95.810 Presence of automatic (implantable) cardiac Nvaeed Dumas M.D. defibrillator 11/03/2018 Z95.810 Presence of automatic (implantable) cardiac Ica Pacer Schedule defibrillator 11/03/2018 R94.31 Abnormal electrocardiogram [ECG] [EKG] Naveed Dumas M.D. Plan of Treatment 01/24/2019 - Whitney Mays N.P.N76.1 Subacute and chronic vaginitisComments:Plan to check for bacterial vaginosis with a swab today, will follow up with you regarding kirwnaiX09.810 Cervical high risk human papillomavirus (HPV) Dna test positiveComments:You should return in one year for repeat ctuepdzT81.2 Pelvic and perineal painNew Xrays:US Transvaginal, Ordered: 01/24/19Comments:Plan to check transvaginal US for your symptoms of bloating and cramping. Functional Status Description No Information Available Mental Status Description No Information Available Referrals Description No Information Available
[2019-03-21 10:44] LABS: Albumin 4.4 g/dL (3.2-5.2); Albumin/Globulin Ratio 1.6 (1-3); BUN/Creatinine Ratio 25.3 (8-20); Calcium 9.8 mg/dL (8.6-10.3); EGFR African American 79.3 (>60); EGFR Non-African American 65.6 (>60); Globulin 2.8 g/dL (2-4); Potassium 4.3 mmol/L (3.5-5.0); Total Bilirubin 0.4 mg/dL (0.2-1.0); Total Protein 7.2 g/dL (6.4-8.9)
[2019-03-21 10:45] LABS: Troponin I 0.01 ng/mL (<0.03)
[2019-03-21 14:22] VITALS: BP 122/71
== END 2019-03-21 14:24 | disposition home or self-care (01) ==
LOC: ED 09:58
DX: R07.9 Chest pain, unspecified (principal); I50.9 Heart failure, unspecified; E07.9 Disorder of thyroid, unspecified; I25.10 Atherosclerotic heart disease of native coronary artery without angina pectoris; M06.9 Rheumatoid arthritis, unspecified; Z98.51 Tubal ligation status; Z87.891 Personal history of nicotine dependence; Z95.0 Presence of cardiac pacemaker; Z79.899 Other long term (current) drug therapy; Z88.0 Allergy status to penicillin
CPT/HCPCS: 36415; 80053; 83690; 83880; 84484; 85025; 85610; 93005; 99283